=== PATIENT | female | born 1955 | race Caucasian/White ===

== ENCOUNTER 2025-04-30 13:58 | Outpatient (AMB) | payer MEDICARE, SELFPAY ==
--- NOTE | 2025-04-30 13:59 | HO.NEPHOV_ITS ---
Vital Signs 04/30/25 14:01 Height 5 ft 4 in Weight 210 lb BMI 36.0 BP 124/80 Blood Pressure Location Lt brachial Position Sitting Pulse 96 Pulse Source Pulse Oximeter Pulse Oximetry (%) 93 Oxygen Delivery Method Room Air Intake Visit Reasons: ENP: CKD- Confirmed Marketing Administrative Assistant Required: No Accompanied by: Self / Same As Patient Allergies No Known Allergies Allergy (Verified 04/30/25 14:01) Medication List - Last Reconciled 04/30/25 by Vin Jane MD amlodipine 5 mg PO DAILY anastrozole 1 mg PO DAILY atenolol 50 mg PO DAILY calcium carbonate-vitamin D3 500 mg-10 mcg (400 unit) 1 tab PO DAILY clonazepam 1 mg PO DAILY levothyroxine 125 mcg PO DAILY loxapine succinate 5 mg PO DAILY tranylcypromine 30 mg PO DAILY HPI Comments Details: Sharon is a pleasant 70-year-old female referred for CKD - Chronic Kidney Disease: Noted to have creatinine levels at 1.5 and 1.34 mg/dL, eGFR dropped from 50% to 43% over a year. - Hypertension: Long-standing, well-controlled with two medications. - Depression and Anxiety: Managed with medication. h/o Longstanding use of Lithiuim. Stopped a month ago History of prediabetes. - Hypothyroidism Under control with medication. - Polyuria: Frequent urination for two years, nocturia two to four times per night. - Arthritis: Joint pain in both knees, likely arthritis. Does not take any NSAIDS Physical Exam General: Awake. Comfortable. HENT: Neck supple. Mucosa moist. Pulmonary: Lungs aeration equal. No rales. Cardiology: Heart S1-S2 heard. No gallop. Abdomen: Soft. Non tender. Bowel sounds normal. Neurologic: No involuntary movements. No myoclonus. Extremities: No edema. No rash. Joint pains in both knees, likely arthritis. COUNT INCLUDES [facility] Surgical History History of orthopedic surgery H/O colonoscopy H/O breast surgery Review of Systems Const Denies fever(s) and Denies weight loss Card Denies chest pain Resp Denies cough and Denies hemoptysis GI Denies abdominal pain, Denies diarrhea and Denies nausea Musc Denies back pain Neuro Denies focal weakness Physical Exam Vital Signs: Last Vital Signs Pulse 96 04/30/25 14:01 BP 124/80 04/30/25 14:01 Pulse Ox 93 04/30/25 14:01 Oxygen Delivery Method Room Air 04/30/25 14:01 BMI result Body Mass Index 36.0 Comfortable Neck supple no JVD. Lungs entry equal no rales. Heart S1-S2 heard no gallop or rub. Abdomen soft nontender. Neuro alert awake oriented. No asterixis. Extremities no edema. Assessment & Plan Assessment & Plan (1) CKD (chronic kidney disease): Code(s): N18.9 - Chronic kidney disease, unspecified Category: Medical (2) HTN (hypertension): Code(s): I10 - Essential (primary) hypertension Category: Medical Plan 1. Chronic Kidney Disease DDX : Hypertensive nephrosclerosis [place] Nephropathy r/o obstructive uropathy - ordered Renal ultrasound 24-hour urine collection to quantify volume and to r/o Nephrogenic DI due to longstanding use of [place] - Avoid NSAIDs to prevent further damage. 2. Hypertension - Blood pressure well-controlled with current medications. Stay on low salt diet 3. Polyuria Need to r/o Nephrogenic DI - Monitor fluid intake and reduce dietary salt. Orders: Orders US renal BI Today N18.9 - Chronic kidney disease, unspecified Creatinine, 24 Hr Group Today N18.9 - Chronic kidney disease, unspecified Comprehensive Met. Panel Today N18.9 - Chronic kidney disease, unspecified UA and rflx microscopic Today N18.9 - Chronic kidney disease, unspecified Osmolality Urine Today N18.9 - Chronic kidney disease, unspecified Complete Blood Count Auto Diff Today N18.9 - Chronic kidney disease, unspecified Patient Instructions: - Collect urine for 24 hours as instructed and bring to the lab. - Avoid NSAIDs like Aleve, Advil, and Motrin. - Reduce salt intake - Increase fluid intake Coding Level of Care Code New Pt Level 4 (70207) Diagnoses CKD (chronic kidney disease) N18.9 HTN (hypertension) I10
[2025-04-30 14:01] VITALS: BP 124/80; PULSE 96; O2SAT 93; BMI 36.0
== END 2025-04-30 14:17 | disposition home or self-care (01) ==
LOC: HO.HKAE 13:59
PROVIDERS: PCP Internal Medicine; Visit Provider Internal Medicine Hypertension Specialist
DX: I12.9 Hypertensive chronic kidney disease with stage 1 through stage 4 chronic kidney disease, or unspecified chronic kidney disease (principal); N18.9 Chronic kidney disease, unspecified
CPT/HCPCS: 99204

== ENCOUNTER → 2025-04-30 13:58 | Outpatient (BNVA) | payer MEDICARE, SELFPAY | PROVIDERS: PCP Internal Medicine; Visit Provider Internal Medicine Hypertension Specialist | DX: I10 Essential (primary) hypertension (principal); N18.9 Chronic kidney disease, unspecified; F32.A Depression, unspecified; F41.9 Anxiety disorder, unspecified; R35.1 Nocturia; R35.0 Frequency of micturition; M13.80 Other specified arthritis, unspecified site | CPT/HCPCS: 99202 ==

== ENCOUNTER 2025-07-02 15:45 | Outpatient (AMB) | payer MEDICARE, SELFPAY ==
[2025-07-02 15:50] VITALS: BP 140/82; PULSE 91; O2SAT 96; BMI 36.4
--- NOTE | 2025-07-02 15:50 | HO.NEPHOV_ITS ---
Vital Signs 07/02/25 15:50 07/02/25 16:10 Height 5 ft 4 in Weight 212 lb BMI 36.4 BP 140/82 H 120/80 Blood Pressure Location Rt brachial Rt brachial Position Sitting Sitting Pulse 91 Pulse Source Pulse Oximeter Pulse Oximetry (%) 96 Oxygen Delivery Method Room Air Intake Visit Reasons: 5 week f/u-Confirmed Senior Technical Support Analyst Required: No Accompanied by: Self / Same As Patient Allergies No Known Allergies Allergy (Verified 07/02/25 15:52) Medication List - Last Reconciled 07/02/25 by Vin Jane MD amlodipine 5 mg PO DAILY anastrozole 1 mg PO DAILY atenolol 50 mg PO DAILY calcium carbonate-vitamin D3 500 mg-10 mcg (400 unit) 1 tab PO DAILY clonazepam 1 mg PO DAILY levothyroxine 125 mcg PO DAILY lorazepam 0.5 mg PO BEDTIME PRN loxapine succinate 5 mg PO DAILY tranylcypromine 30 mg PO DAILY HPI Comments Details: History of Present Illness The patient is a 70-year-old female with a history of chronic kidney disease and long-standing hypertension presenting for follow-up. Her serum creatinine has improved to 1.17 from a previous level of 1.34. - Depression and Anxiety: Managed with medication. h/o Longstanding use of Lithiuim. Stopped a month ago History of prediabetes. - Hypothyroidism Under control with medication. - Polyuria: Frequent urination for two years, nocturia two to four times per night. - Arthritis: Joint pain in both knees, likely arthritis. Does not take any NSAIDS A prior kidney and bladder ultrasound was normal, with no evidence of stones or blockage. A recent 24-hour urine collection showed a volume of 2,600 cc. She is managed on amlodipine and atenolol for her hypertension. The patient denies the use of Aleve, Advil, or Motrin, but occasionally uses Tylenol. She reported experiencing tiredness and poor sleep prior to the visit. Results - Labs: Serum creatinine is 1.17, improved from 1.34. - Labs: Electrolytes are within normal limits. - Tests and Diagnostics: A 24-hour urine collection showed a total volume of 2,600 cc. - Imaging: A kidney ultrasound was normal with no stones or obstruction. [facility] Surgical History History of orthopedic surgery H/O colonoscopy H/O breast surgery Physical Exam Exam Exam: Physical Exam General: Awake. Comfortable. HENT: Neck supple. Mucosa moist. Pulmonary: Lungs aeration equal. No rales. Cardiology: Heart S1-S2 heard. No gallop. Blood pressure 120/80. Abdomen: Soft. Non tender. Bowel sounds normal. Neurologic: No involuntary movements. No myoclonus. Extremities: No edema. No rash. Vital Signs: Last Vital Signs Pulse 91 07/02/25 15:50 BP 120/80 07/02/25 16:10 Pulse Ox 96 07/02/25 15:50 Oxygen Delivery Method Room Air 07/02/25 15:50 BMI result Body Mass Index 36.4 Comfortable Neck supple no JVD. Lungs entry equal no rales. Heart S1-S2 heard no gallop or rub. Abdomen soft nontender. Neuro alert awake oriented. No asterixis. Extremities no edema. Assessment & Plan Assessment & Plan (1) CKD (chronic kidney disease): Code(s): N18.9 - Chronic kidney disease, unspecified Category: Medical (2) HTN (hypertension): Code(s): I10 - Essential (primary) hypertension Category: Medical Plan Plan 1. Chronic Kidney Disease HTN Nephrosclerosis/ [place] Nepropathy - The patient's kidney function has improved, as evidenced by a decrease in serum creatinine from 1.34 to 1.17. - She was advised to maintain adequate hydration by drinking at least 2,600 cc of fluids, preferably water, daily. - The patient should continue to avoid NSAIDs such as Aleve, Advil, and Motrin. - Repeat blood work will be ordered to monitor kidney function. - A follow-up visit is scheduled in six months. 2. Hypertension - The patient's blood pressure is well-controlled at 120/80 mmHg on her current medication regimen of amlodipine and atenolol. - She was advised to continue avoiding excess salt in her diet. - No changes will be made to her current blood pressure medications. - A note will be sent to her primary care provider to provide an update on her status. Patient Instructions - Your kidney function has improved, which is good news. - Your blood pressure is very good at 120/80. - Make sure to drink plenty of water, at least 2,600 cc (about 11 glasses) each day. - Try to avoid adding extra salt to your food. - Continue to avoid taking Aleve, Advil, or Motrin. You can take Tylenol if you need it for pain. - We will see you back in the office in about six months. - You will need to get blood work done before your next appointment to check on your kidneys. Orders: Orders Basic Metabolic Panel 6 Months I10 - Essential (primary) hypertension, N18.9 - Chronic kidney disease, unspecified Coding Level of Care Code Est Pt Level 4 (99217) Diagnoses CKD (chronic kidney disease) N18.9 HTN (hypertension) I10
[2025-07-02 16:10] VITALS: BP 120/80
--- OUTSIDE RECORDS SUMMARY | 2025-07-03 00:29 | XMS_ITS | Encounter Summary ---
Author Organization [facility] Address [address] [place] [address] Care Team Providers Care Arcade Game Technician Name Role Phone Diana Field MD Primary Care Provider Kenzie Neely MD Unavailable [phone] Sofi Hinson RN Unavailable Unavaila ble Sahil Ignacio MD Unavailable [phone] DosHilaria love MD Unavailable Cheryle Garcia MD Unavailable Rafia Stevenson MD Unavailable [phone] Joselo Arnold MD Unavailable [phone] Karma Kahn RN Unavailable [phone] Jenn David DO Unavailable [phone] DostHilaria MD Unavailable Diana Field MD Unavailable [phone] Bonnie Garrett MD Unavailable Unavailable Sherly Parra MD Unavailable Ilana Jeffery LCSW Unavailable [phone] Hodan Lemon Unavailable Encounter Details Date Type Department Care Team (Late st Contact Info) Description 03/01/2019 Scanned Document [facility] [address] [place] [address] Sheila Mckenzie MD [address] [place] [address] [address] [place] [address] Social History Tobacco Use Types Packs/Day Years Used Date Smoking Tobacco: Never Smokeless Tobacco: Never Alcohol Use Standard Drinks/Week Comments No 0 (1 standard drink = 0.6 oz pur e alcohol) Comments No Sex and Gender Information Value Date Recorded Sex Assigned at Female 12/23/2023 9:41 AM EDT Legal Sex Female 2:23 PM EDT Gender Identity Female 12/23/2023 9:41 AM EDT Sexual Orientation Heterosexual (straight) 12/22 9:41 AM EDT documented as of this encounter Plan of Treatment Upcoming Encounters Date Type Department Care Team (Late Contact Info) Description 08/12/2025 1:45 PM EST Office Visit [facility] Endocrinology [address] [phone] Sherly Parra MD [address] [place] [address] 10/22/2025 10:45 AM EDT Office Visit [address] [phone] Diana Field MD [address] [address] documented as of this encounter Visit Diagnoses Not on filedocumented in this encounter Care Teams Arcade Game Technician Relationship Specialty Start Date End Date Diana Field MD PCP - General Internal Medicine 02/22/16 Jenn David DO [address] [place] [address] PCP - [employer] Medicare Attributed 07/24/21 02/20/22 Hilaria Mathew MD [address] [place] [address] PCP - [employer] Medicare Attributed 02/21/22 03/23/22 Diana Field MD [address] [place] [address] [address] [place] [address] PCP - [employer] Medicare Attributed 03/24/22 Kenzie Neely MD [address] [id number] Physician Obstetrics and Gynecology 01/04/19 Sofi Hinson, RN [address] [address] Oncology Nurse Navigator 04/25/19 04/23/21 Sahil Ignacio MD [address] [id number] Cardiovascular Disease 06/27/19 Hilaria Mathew MD [address] [place] [address] Hematology Oncology 08/20/19 Cheryle Garcia MD [address] [place] [address] Radiation Oncology 08/20/19 Rafia Stevenson MD [address] [facility] [address] [place] [address] Surgery, Breast 05/28/20 Joselo Arnold MD [address] [place] [address] Surgery, Orthopedic 11/19/20 Karma Kahn, RN [address] [place] [address] ICP Community Sales Clerk 07/27/21 02/07/25 Bonnie Garrett MD [address] [place] [address] Psychiatrist Psychiatry, General 11/07/22 Sherly Parra MD [address] [place] [address] Endocrinology 07/25/23 Ilana Jeffery LCSW [address] [address] ICP Community Sales Clerk 02/07/25 02/25/25 Hodan Lemon [address] [address] ICP Community Sales Clerk 02/25/25 documented as of this encounter
--- OUTSIDE RECORDS SUMMARY | 2025-07-03 00:29 | XMS_ITS | Encounter Summary ---
Author Organization [facility] Address [address] [place] [address] Care Team Providers Care Manager Culture Name Role Phone Diana Field MD Primary Care Provider Kenzie Neely MD Unavailable Sofi Hinson RN Unavailable Unavaila ble Sahil Ignacio MD Unavailable [phone] DosHilaria love MD Unavailable Cheryle Garcia MD Unavailable [phone] Rafia Stevenson MD Unavailable [phone] Joselo Arnold MD Unavailable [phone] Karma Kahn RN Unavailable [phone] Jenn David DO Unavailable [phone] DostHilaria MD Unavailable Diana Field MD Unavailable [phone] Bonnie Garrett MD Unavailable Unavailable Sherly Parra MD Unavailable Ilana Jeffery LCSW Unavailable [phone] Hodan Lemon Unavailable Encounter Details Date Type Department Care Team (Late st Contact Info) Description 06/09/2015 Scanned Document [address] [phone] Provider, Generic Social History Tobacco Use Types Packs/Day Years Used Date Smoking Tobacco: Never Alcohol Use Standard Drinks/Week Comments Not Asked 0 (1 standard drink = 0.6 oz pur e alcohol) Comments Unknown Sex and Gender Information Value Date Recorded Sex Assigned at Female 12/23/2023 9:41 AM EDT Legal Sex Female 2:23 PM EDT Gender Identity Female 12/23/2023 9:41 AM EDT Sexual Orientation Heterosexual (straight) 12/22 9:41 AM EDT documented as of this encounter Plan of Treatment Upcoming Encounters Date Type Department Care Team (Late st Contact Info) Description 08/12/2025 1:45 PM EST Office Visit [facility] Endocrinology [address] [phone] Sherly Parra MD [address] [place] [address] 10/22/2025 10:45 AM EDT Office Visit [address] [phone] Diana Field MD [address] [place] [address] documented as of this encounter Procedures Procedure Name Priority Date/Time Associated Diagnosis Comments LAB RESULT 06/09/2015 documented in this encounter Results * LAB RESULT (06/09/2015) Narrative 06/09/2015 Ordered by an unspecified provider. us Generic Provider HX AMB PROCEDURES Edited Result - Final documented in this encounter Visit Diagnoses Not on filedocumented in this encounter Care Teams Manager Culture Relationship Specialty Start Date End Date Diana Field MD PCP - General Internal Medicine 02/22/16 Jenn David DO [address] [place] [address] PCP - [employer] Medicare Attributed 07/24/21 02/20/22 Hilaria Mathew MD [address] [address] PCP - [employer] Medicare Attributed 02/21/22 03/23/22 Diana Field MD [address] [place] [address] PCP - [employer] Medicare Attributed 03/24/22 Kenzie Neely MD [address] [phone] Physician Obstetrics and Gynecology 01/04/19 Sofi Hinson, RN [address] [address] Oncology Nurse Navigator 04/25/19 04/23/21 Sahil Ignacio MD [address] [phone] Cardiovascular Disease 06/27/19 Hilaria Mathew MD 85 [place] [address] Hematology Oncology 08/20/19 hCeryle Garcia MD [address] [place] [address] Radiation Oncology 08/20/19 Rafia Stevenson MD [address] [place] [address] [place] [address] Surgery, Breast 05/28/20 Joselo Arnold MD [address] [place] [address] Surgery, Orthopedic 11/19/20 Karma Kahn, MONA [address] [place] [address] ICP Community Dog Behaviorist 07/27/21 02/07/25 Bonnie Garrett MD [address] [place] [address] Psychiatrist Psychiatry, General 11/07/22 Sherly Parra MD [address] [place] [address] Endocrinology 07/25/23 Ilana eJffery LCSW [address] [address] ICP Community Dog Behaviorist 02/07/25 02/25/25 Hodan Lemon [address] [address] ICP Community Dog Behaviorist 02/25/25 documented as of this encounter
--- OUTSIDE RECORDS SUMMARY | 2025-07-03 00:29 | XMS_ITS | Encounter Summary ---
Author Organization [facility] Address [address] [place] [address] Care Team Providers Care Pattern Vault Clerk Name Role Phone Diana Field MD Primary Care Provider Kenzie Neely MD Unavailable Sofi Hinson RN Unavailable Unavaila ble Sahil Ignacio MD Unavailable [phone] DosHilaria love MD Unavailable Cheryle Garcia MD Unavailable [phone] Rafia Stevenson MD Unavailable [phone] Joselo Arnold MD Unavailable [phone] Karma Kahn RN Unavailable [phone] Jenn David DO Unavailable DostHilaria MD Unavailable Diana Field MD Unavailable [phone] Bonnie Garrett MD Unavailable Unavailable Sherly Parra MD Unavailable Ilana Jeffery LCSW Unavailable [phone] Hodan Lemon Unavailable Encounter Details Date Type Department Care Team (Late st Contact Info) Description 03/09/[address] [facility] [address] [address] Brian Brown, DO [address] [address] Social History Tobacco Use Types Packs/Day Years [...] Orientation Heterosexual (straight) 12/22 9:41 AM EDT 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 No / Unsure 03/09/2021 8:48 AM EDT documented as of this encounter Plan of Treatment Upcoming Encounters Date Type Department Care Team (Late st Contact Info) Description 08/12/2025 1:45 PM EST Office Visit [facility] Endocrinology [address] [phone] Sehrly Parra MD [address] [place] [address] 10/22/2025 10:45 AM EDT Office Visit [address] [phone] Diana Field MD [address] [place] [address] documented as of this encounter Procedures Procedure Name Priority Date/Time Associated Diagnosis Comments PATHOLOGY REPORT 03/09/2021 12:0 0 AM EDT documented in this encounter Results * PATHOLOGY REPORT (03/09/2021 12:00 AM EDT) Brian Brown DO PATHOLOGY/CYTOLOGY ORDERABLES Fi nal Result documented in this encounter Visit Diagnoses Not on filedocumented in this encounter Care Teams Pattern Vault Clerk Relationship Specialty Start Date End Date Diana Field MD PCP - General Internal Medicine 02/22/16 Jenn David DO [address] [place] [address] PCP - [employer] Medicare Attributed 07/24/21 02/20/22 Hilaria Mathew MD [address] [address] PCP - [employer] Medicare Attributed 02/21/22 03/23/22 Diana Field MD [address] [place] [address] PCP - [employer] Medicare Attributed 03/24/22 Kenzie Neely MD [address] [place] [address] Physician Obstetrics and Gynecology 01/04/19 Sofi Hinson RN 499 [place] [address] Oncology Nurse Navigator 04/25/19 04/23/21 Sahil Ignacio MD [address] [place] [address] Cardiovascular Disease 06/27/19 Hilaria Mathew MD 85 [place] [address] Hematology Oncology 08/20/19 Cheryle Garcia MD 85 [place] [address] Radiation Oncology 08/20/19 Rafia Stevenson MD [address] [place] [address] Surgery, Breast 05/28/20 Joselo Arnold MD [address] [place] [address] Surgery, Orthopedic 11/19/20 Karma Kahn, MONA [address] [address] ICP Community Soil Sampler 07/27/21 02/07/25 Bonnie Garrett MD [address] [place] [address] Psychiatrist Psychiatry, General 11/07/22 Sherly Parra MD [address] [place] [address] Endocrinology 07/25/23 Ilana Jeffery LCSW [address] [address] ICP Community Soil Sampler 02/07/25 02/25/25 Hodan Lemon [address] [address] ICP Community Soil Sampler 02/25/25 documented as of this encounter
--- OUTSIDE RECORDS SUMMARY | 2025-07-03 00:29 | XMS_ITS | Clinical Summary ---
Author Organization [facility] Address [address] [place] [address] Care Team Providers Care Burglar Alarm Installer Name Role Phone Diana Field MD Primary Care Provider [phone] Allergies No known active allergies Medications tranylcypromine (PARNATE) 10 mg tablet 8 Active levothyroxine (SYNTHROID) 137 mcg tablet TAKE ONE TABLET BY MOUTH EVERY DAY 8 Active QUEtiapine (SEROquel) 25 mg tablet 8 Active mometasone (ELOCON) 0.1 % lotion 8 Active metroNIDAZOLE (METROCREAM) 0.75 % cream APPLY TWICE DAILY TO FACE 7 Active lithium (LITHOBID) 300 mg CR tablet 8 Active liothyronine (CYTOMEL) 5 mcg tablet 8 Active clotrimazole-be tamethasone (LOTRISONE) cream Apply topically. 8 Active clonazePAM (KlonoPIN) 0.5 mg tablet 2 times daily (every 12 hours) as needed. ClonazePAM 0.5 MG Oral Tablet 3 Active atenolol (TENORMIN) 50 mg tablet Take 50 mg by mouth. 0 8 Active ARIPiprazole (ABILIFY) 5 mg tablet Patient takes half tablet QOD 8 Active clonazePAM (KlonoPIN) 0.5 mg tablet 8 Active ARIPiprazole (ABILIFY) 5 mg tablet Patient takes half tablet QOD 8 Active ketoconazole (NIZORAL) 2 % creamIndication s:Candidal intertrigo Apply twice a day to rash in skin folds. 30 g 3 8 Active hydrocortisone 2.5 % ointmentIndicat ions:Psoriasis Apply twice a day to groin skin folds for 4-5 days then take a few days off before repeating. 30 g 3 8 Active fluocinolone (DERMA-SMOOTHE) 0.01 % external oilIndications: Irritant dermatitis Apply to scalp and groin folds twice a day for flares for up to two weeks. 120 mL 5 8 Active Active Problems Problem Noted Date Diagnosed Date Psoriasis 03/21/2018 Alopecia areata 03/21/2018 Essential hypertension 12/20/2016 Morbid obesity 11/15/2013 Hirsutism 09/20/2013 Hypothyroidism 09/20/2013 Rosacea 09/20/2013 Bipolar disorder with depression 09/17/2013 Chronic kidney disease, stage III (moderate) Edema 09/17/2013 Hypertensive kidney disease with stage 3 chronic kidney disease 09/17/2013 Pain in joint, lower leg 09/17/2013 Immunizations Immunization Administration Dates Next Due Influenza TIV (IM) 06/16/2015,05/04/2009 Family History Medical History Relation Comments Osteoporosis Mother Cancer Sister Relation Status Comments Mother Sister Social History Tobacco Use Types Packs/Day Years Used Date Smoking Tobacco: Never Smokeless Tobacco: Never Alcohol Use Standard Drinks/Week Comments No 0 (1 standard drink = 0.6 oz pur e alcohol) Comments Unknown Sex and Gender Information Value Date Recorded Sex Assigned at Not on file Legal Sex Female 3:15 PM EDT Gender Identity Not on file Sexual Orientation Not on file Plan of Treatment Health Maintenance Due Date Last Done Comments Bone Density Screening 1956 CT Colonography 1956 Colonoscopy 1956 Colorectal Cancer Screening 1956 FIT-DNA (Cologuard) 1955 FIT 1956 FOBT 1955 Flex Sigmoidoscopy - 5y 1956 HIV Screening 1955 DTaP,Tdap,and Td Vaccines (1 - Tdap) 02/05/1974 Pneumococcal Vaccine, 50+ Years (1 of 1 - PCV) 02/05/2006 Zoster Vaccines (1 of 2) 02/05/2006 Breast Cancer Screening 02/20/2020 02/19/2018 COVID-19 Vaccine (3 - 2024- season) 2025 11/06/2020, 10/16/2020 Influenza Vaccine (#1) 2025 , 06/07/2019, 06/16/2015, Additional history exists Pap Smear Discontinued 03/12/2021 HPV Vaccines Aged Out No longer eligi ble based on patient's age to complete this topic Hepatitis A Vaccines Aged Out No long er eligible based on patient's age to complete this topic Meningococcal Vaccine Aged Out No james dick eligible based on patient's age to complete this topic Insurance [employer] MANAGED MEDICARE PPO Care Teams Burglar Alarm Installer Relationship Specialty Start Date End Date Diana Field MD [address] [place] [address] PCP - General 10/04/17
--- OUTSIDE RECORDS SUMMARY | 2025-07-03 00:29 | XMS_ITS | Encounter Summary ---
Author Organization [facility] Address [address] [place] [address] Care Team Providers Care Grocery Caddy Name Role Phone Diana Field MD Primary Care Provider Kenzie Neely MD Unavailable Sahil Ignacio MD Unavailable [phone] DosHilaria love MD Unavailable Cheryle Garcia MD Unavailable Rafia Stevenson MD Unavailable [phone] Joselo Arnold MD Unavailable [phone] Karma Kahn RN Unavailable [phone] Jenn David DO Unavailable [phone] DosHilaria love MD Unavailable Diana Field MD Unavailable [phone] Bonnie Garrett MD Unavailable Unavailable Sherly Parra MD Unavailable Ilana Jeffery LCSW Unavailable [phone] Hodan Lemon Unavailable Encounter Details Date Type Department Care Team (Late st Contact Info) Description 11/05/2021 Scanned Document [facility] PRIMARY CARE SCAN Diana Field MD [address] [place] [address] Social History Tobacco Use Types Packs/Day Years [...] have Coronavirus / COVID-19? No / Unsure 10/26/2021 10:39 AM EDT documented as of this encounter Plan of Treatment Upcoming Encounters Date Type Department Care Team (Late st Contact Info) Description 08/12/2025 1:45 PM EST Office Visit [facility] Endocrinology [address] [phone] Sherly Parra MD [address] [address] 10/22/2025 10:45 AM EDT Office Visit [facility] [address] [phone] Diana Field MD [address] [facility] 101 [place] [address] documented as of this encounter Visit Diagnoses Not on filedocumented in this encounter Care Teams Grocery Caddy Relationship Specialty Start Date End Date Diana Field MD PCP - General Internal Medicine 02/22/16 Jenn David DO 74 [place] [address] PCP - Aetna Medicare Attributed 07/24/21 02/20/22 Hilaria Mathew MD [address] [address] PCP - Aetna Medicare Attributed 02/21/22 03/23/22 Diana Field MD [address] [place] [address] [address] [place] [address] PCP - Aetna Medicare Attributed 03/24/22 Kenzie Neely MD 499 [facility] 220 [place] [address] Physician Obstetrics and Gynecology 01/04/19 Sahil Ignacio MD 499 [facility] [address] [place] [address] Cardiovascular Disease 06/27/19 Hilaria Mathew MD [address] [phone] Hematology Oncology 08/20/19 Cheryle Garcia MD 85 [place] [address] Radiation Oncology 08/20/19 Rafia Stevenson MD 399 [facility] [address] [place] [address] Surgery, Breast 05/28/20 Joselo Arnold MD [address] [place] [address] Surgery, Orthopedic 11/19/20 Karma Kahn, RN [address] [facility] 4 [place] [address] ICP Community Rawhide Bone Roller 07/27/21 02/07/25 Bonnie Garrett MD [address] [place] [address] Psychiatrist Psychiatry, General 11/07/22 Sherly Parra MD [address] [place] [address] Endocrinology 07/25/23 Ilana Jeffery LCSW [address] [address] ICP Community Rawhide Bone Roller 02/07/25 02/25/25 Hodan Lemon [address] [address] ICP Community Rawhide Bone Roller 02/25/25 documented as of this encounter
--- OUTSIDE RECORDS SUMMARY | 2025-07-03 00:29 | XMS_ITS | Encounter Summary ---
Author Organization [facility] Address [address] [place] [address] Care Team Providers Care Oil Well Service Unit Operator Name Role Phone Diana Field MD Primary Care Provider Kenzie Neely MD Unavailable [phone] Sofi Hinson RN Unavailable Unavaila ble Sahil Ignacio MD Unavailable [phone] DosHilaria love MD Unavailable Cheryle Garcia MD Unavailable [phone] Rafia Stevenson MD Unavailable [phone] Joselo Arnold MD Unavailable [phone] Karma Kahn RN Unavailable [phone] Jenn David DO Unavailable [phone] DostHilaria MD Unavailable Diana Field MD Unavailable [phone] Bonnie Garrett MD Unavailable Unavailable Sherly Parra MD Unavailable Ilana Jeffery LCSW Unavailable [phone] Hodan Lemon Unavailable Encounter Details Date Type Department Care Team (Late st Contact Info) Description 09/04/[address] [facility] Endocrinology [address] [address] Obstetrics And Gynecology, Scan Social History Tobacco Use Types Packs/Day Years [...] Description 08/12/2025 1:45 PM EST Office Visit [facility] Endocrinology [address] [phone] Sherly Parra MD [address] [place] [address] 10/22/2025 10:45 AM EDT Office Visit [address] [phone] Diana Field MD [address] [place] [address] documented as of this encounter Visit Diagnoses Not on filedocumented in this encounter Care Teams Oil Well Service Unit Operator Relationship Specialty Start Date End Date Diana Field MD PCP - General Internal Medicine 02/22/16 Jenn David DO [address] [place] [address] PCP - Aetna Medicare Attributed 07/24/21 02/20/22 Hilaria Mathew MD [address] [place] [address] PCP - Aetna Medicare Attributed 02/21/22 03/23/22 Diana Field MD [address] [place] [address] [address] [place] [address] PCP - Aetna Medicare Attributed 03/24/22 Kenzie Neely MD 499 [facility] 220 [place] [address] Physician Obstetrics and Gynecology 01/04/19 Sofi Hinson RN 499 [facility] 220 [place] [address] Oncology Nurse Navigator 04/25/19 04/23/21 Sahil Ignacio MD 499 [facility] 220 [place] [address] Cardiovascular Disease 06/27/19 Hilaria Mathew MD 85 [place] [address] Hematology Oncology 08/20/19 Cheryle Garcia MD 85 [place] [address] Radiation Oncology 08/20/19 Rafia Stevenson MD 399 [facility] [address] [place] [address] Surgery, Breast 05/28/20 Joselo Arnold MD [address] [place] [address] Surgery, Orthopedic 11/19/20 Karma Kahn, RN [address] [place] [address] ICP Community Rn Float 07/27/21 02/07/25 Bonnie Garrett MD [address] [place] [address] Psychiatrist Psychiatry, General 11/07/22 Sherly Parra MD [address] [place] [address] Endocrinology 07/25/23 Ilana Jeffery LCSW [address] [address] ICP Community Rn Float 02/07/25 02/25/25 Hodan Lemon [address] [address] ICP Community Rn Float 02/25/25 documented as of this encounter
--- OUTSIDE RECORDS SUMMARY | 2025-07-03 00:29 | XMS_ITS | Encounter Summary ---
Author Organization [facility] Address [address] [place] [address] Care Team Providers Care Diver Pumper Name Role Phone Diana Field MD Primary Care Provider Kenzie Neely MD Unavailable [phone] Sofi Hinson RN Unavailable Unavaila ble Sahil Ignacio MD Unavailable [phone] DosHilaria love MD Unavailable Cheryle Garcia MD Unavailable [phone] Rafia Stevenson MD Unavailable [phone] Joselo Arnold MD Unavailable [phone] Karma Kahn RN Unavailable [phone] Jenn David DO Unavailable [phone] DostHilaria MD Unavailable Diana Field MD Unavailable [phone] Bonnie Garrett MD Unavailable Unavailable Sherly Parra MD Unavailable Ilana Jeffery LCSW Unavailable [phone] Hodan Leomn Unavailable Encounter Details Date Type Department Care Team (Late st Contact Info) Description 07/26/[address] [facility] Breast Care & Surgery [place] 399 [facility] [address] [place] [address] Rafia Stevenson MD 399 [facility] [address] [place] [address] Social History Tobacco Use Types Packs/Day Years [...] 1:45 PM EST Office Visit [facility] Endocrinology [place] [address] [phone] Sherly Parra MD 100 [place] [address] 10/22/2025 10:45 AM EDT Office Visit [address] [phone] Diana Field MD 100 [facility] 101 [place] [address] documented as of this encounter Visit Diagnoses Not on filedocumented in this encounter Care Teams Diver Pumper Relationship Specialty Start Date End Date Diana Field MD PCP - General Internal Medicine 02/22/16 Jenn Dvaid DO [address] [place] [address] PCP - Aetna Medicare Attributed 07/24/21 02/20/22 Hilaria Mathew MD 2800 [facility] 3rd [place] [address] PCP - Aetna Medicare Attributed 02/21/22 03/23/22 Diana Field MD [address] [place] [address] PCP - Aetna Medicare Attributed 03/24/22 Kenzie Neely MD 499 [facility] 220 [place] [address] Physician Obstetrics and Gynecology 01/04/19 Sofi Hinson, RN [address] [address] Oncology Nurse Navigator 04/25/19 04/23/21 Sahil Ignacio MD 499 [place] [address] Cardiovascular Disease 06/27/19 Hilaria Mathew MD [address] [place] [address] Hematology Oncology 08/20/19 Cheryle Garcia MD 85 [place] [address] Radiation Oncology 08/20/19 Rafia Stevenson MD 399 [facility] [address] [place] [phone] Surgery, Breast 11/5/20 Joselo Arnold MD [address] [place] [address] Surgery, Orthopedic 11/19/20 Karma Kahn, RN [address] [place] [address] [facility] 4 [place] [address] ICP Community Veneer Sheet Repairer 07/27/21 02/07/25 Bonnie Garrett MD [address] [place] [address] Psychiatrist Psychiatry, General 11/07/22 Sherly Parra MD [address] [place] [address] Endocrinology 07/25/23 Ilana Jeffery LCSW [address] [address] ICP Community Veneer Sheet Repairer 02/07/25 02/25/25 Hodan Lemon [address] [address] ICP Community Veneer Sheet Repairer 02/25/25 documented as of this encounter
--- OUTSIDE RECORDS SUMMARY | 2025-07-03 00:29 | XMS_ITS | Encounter Summary ---
Author Organization [facility] Address [address] [place] [address] Care Team Providers Care Product Marketing Director Name Role Phone Diana Field MD Primary Care Provider Kenzie Neely MD Unavailable [phone] Sofi Hinson RN Unavailable Unavaila ble Sahil Ignacio MD Unavailable [phone] DosHilaria love MD Unavailable Cheryle Garcia MD Unavailable [phone] Rafia Stevenson MD Unavailable [phone] Joselo Arnold MD Unavailable [phone] Karma Kahn RN Unavailable [phone] Jenn David DO Unavailable [phone] DostHilaria MD Unavailable Diana Field MD Unavailable [phone] Bonnie Garrett MD Unavailable Unavailable Sherly Parra MD Unavailable Ilana Jeffery LCSW Unavailable [phone] Hodan Lemon Unavailable Encounter Details Date Type Department Care Team (Late st Contact Info) Description 06/11/2018 Scanned Document [address] [phone] Provider, Generic Social History Tobacco Use Types [...] Description 08/12/2025 1:45 PM EST Office Visit [facility] Endocrinology [address] [phone] Sherly Parra MD [address] [place] [address] 10/22/2025 10:45 AM EDT Office Visit [address] [phone] Diana Field MD [address] [place] [address] documented as of this encounter Visit Diagnoses Not on filedocumented in this encounter Care Teams Product Marketing Director Relationship Specialty Start Date End Date Diana Field MD PCP - General Internal Medicine 02/22/16 Jenn David DO [address] [place] [address] PCP - Aetna Medicare Attributed 07/24/21 02/20/22 Hilaria Mathew MD [address] [place] [address] PCP - Aetna Medicare Attributed 02/21/22 03/23/22 Diana Field MD [address] [place] [address] [address] [place] [address] PCP - Aetna Medicare Attributed 03/24/22 Kenzie Neely MD 499 [facility] 220 [place] [address] Physician Obstetrics and Gynecology 01/04/19 Sofi Hinson RN 499 [facility] 220 [place] [address] Oncology Nurse Navigator 04/25/19 04/23/21 Sahil Ignacio MD 499 [facility] 220 [place] [address] Cardiovascular Disease 06/27/19 Hilaria Mathew MD 85 [place] [address] Hematology Oncology 08/20/19 Cheryel Garcia MD 85 [place] [address] Radiation Oncology 08/20/19 Rafia Stevenson MD [address] [facility] [address] [place] [address] Surgery, Breast 05/28/20 Joselo Arnold MD [address] [place] [address] Surgery, Orthopedic 11/19/20 Karma Kahn, RN [address] 4 [place] [address] ICP Community Import/Export Agent 07/27/21 02/07/25 Bonnie Garrett MD [address] [place] [address] Psychiatrist Psychiatry, General 11/07/22 Sherly Parra MD [address] [place] [address] Endocrinology 07/25/23 Ilana Jeffery LCSW [address] [address] ICP Community Import/Export Agent 02/07/25 02/25/25 Hodan Lemon [address] [address] ICP Community Import/Export Agent 02/25/25 documented as of this encounter
--- OUTSIDE RECORDS SUMMARY | 2025-07-03 00:29 | XMS_ITS | Encounter Summary ---
Author Organization [facility] Address [address] [place] [address] Care Team Providers Care Machine Hoop Maker Helper Name Role Phone Diana Field MD Primary Care Provider + [phone] Kenzie Neely MD Unavailable [phone] Sahil Ignacio MD Unavailable [phone] Hilaria Mathew MD Unavailable Cheryle Garcia MD Unavailable [phone] Rafia Stevenson MD Unavailable [phone] Joselo Arnold MD Unavailable [phone] Karma Kahn RN Unavailable [phone] Diana Field MD Unavailable [phone] Bonnie Garrett MD Unavailable Unavailable Sherly Parra MD Unavailable Ilana Jeffery LCSW Unavailable [phone] Hodan Lemon Unavailable Encounter Details Date Type Department Care Team (Late st Contact Info) Description 02/05/2025 Scanned Document [facility] ONCOLOGY SCAN Oncology, Scan Social History Tobacco Use Types Packs/Day Years Used Date Smoking Tobacco: Never Smokeless Tobacco: Never Alcohol Use Standard Drinks/Week Comments No 0 (1 standard drink = 0.6 oz pur e alcohol) [facility] Utilities Answer Date Recorded In the past 12 months has th e electric, gas, oil, or water company threatened to shut off services in your home? No 10/21/2024 Social Connection and Isolation Panel Answer Date Recorded In a typical week, how many times do you talk on the phone with family, friends, or neighbors? Once a week 10/21/2024 Frequency of Social Gatherings with Friends and Family Not on file 10/21/2024 Attends Mandaeism Services Not on file 10/21 Active Member of Clubs or Organizations Not on f ile 10/21/2024 Attends Club or Organization Meetings Not on samson e 10/21/2024 Marital Status Not on file 10/21/2024 AUDIT-C Answer Date Recorded Q1: How often do you have a drink containing alcohol? Never 10/21/2024 Q2: How many drinks containi ng alcohol do you have on a typical day when you are drinking? Patient does not drink Q3: How often do you have si x or more drinks on one occasion? Never 10/21/2024 PHQ-2 Answer Date Recorded PHQ-2 Total Score 6 06/13/2024 Hunger Vital Sign Answer Date Recorded Within the past 12 months, y ou worried that your food would run out before you got the money to buy more. Never true 10/22/19 25 Within the past 12 months, t he food you bought just didn't last and you didn't have money to get more. Never true 10/21/2024 PRAPARE - Transportation Answer Date Re corded In the past 12 months, has l ack of transportation kept you from medical appointments or from getting medications? No 09/23 In the past 12 months, has l ack of transportation kept you from meetings, work, or from getting things needed for daily living? No 10/21/2024 Housing Stability Vital Sign Answer Dusty e Recorded In the last 12 months, was t here a time when you were not able to pay the mortgage or rent on time? No 10/21/2024 In the past 12 months, how m any times have you moved where you were living? 0 10/21/2024 At any time in the past 12 m [facility], were you homeless or living in a assisted (including now)? No 10/21/2024 Physical Activity Answer Date Recorded On average, how many days pe r week do you engage in moderate to strenuous exercise (like a brisk walk)? 0 days 10/21/2024 On average, how many minutes do you exercise per day at this level? 0 min 10/21/2024 Education Answer Date Recorded What is the highest level of school you have completed or the highest degree you have received? 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 Not on file Not on file documented as of this encounter Plan of Treatment Upcoming Encounters Date Type Department Care Team (Late st Contact Info) Description 08/12/2025 1:45 PM EST Office Visit [facility] Endocrinology [address] [phone] Sherly Parra MD [address] [place] [address] 10/22/2025 10:45 AM EDT Office Visit [address] [phone] Diana Field MD [address] [place] [address] documented as of this encounter Visit Diagnoses Not on filedocumented in this encounter Care Teams Machine Hoop Maker Helper Relationship Specialty Start Date End Date Diana Field MD PCP - General Internal Medicine 02/22/16 Diana Field MD [address] [place] [address] PCP - Aetna Medicare Attributed 03/24/22 Kenzie eNely MD 499 [facility] 220 [place] [address] Physician Obstetrics and Gynecology 01/04/19 Sahil Ignacio MD 499 [facility] 220 [place] [address] Cardiovascular Disease 06/27/19 Hilaria Mathew MD [address] [phone] Hematology Oncology 08/20/19 Cheryle Garcia MD [address] [place] [phone] Radiation Oncology 08/20/19 Rafia Stevenson MD 399 [facility] [address] [place] [phone] Surgery, Breast 05/28/20 Joselo Arnold MD [address] [facility] 208 [place] [address] Surgery, Orthopedic 11/19/20 Karma Kahn, RN 1290 [facility] 4 [place] [address] [facility] Community Machinery Rigger 07/27/21 02/07/25 Bonnie Garrett MD 100 [facility] [address] [place] [address] Psychiatrist Psychiatry, General 11/07/22 Sherly Parra MD [address] [place] [address] Endocrinology 07/25/23 Ilana Jeffery LCSW [address] [address] [facility] Community Machinery Rigger 02/07/25 02/25/25 Hodan Lemon [address] [address] [facility] Community Machinery Rigger 02/25/25 documented as of this encounter
--- OUTSIDE RECORDS SUMMARY | 2025-07-03 00:29 | XMS_ITS | Encounter Summary ---
Author Organization [facility] Address [address] [place] [address] Care Team Providers Care Creasing Machine Operator Name Role Phone Diana Field MD Primary Care Provider + [phone] Kenzie Neely MD Unavailable [phone] Sahil Ignacio MD Unavailable [phone] Hilaria Mathew MD Unavailable Cheryle Garcia MD Unavailable [phone] Rafia Stevenson MD Unavailable [phone] Joselo Arnold MD Unavailable [phone] Karma Kahn RN Unavailable [phone] Diana Field MD Unavailable [phone] Bonnie Garrett MD Unavailable Unavailable Sherly Parra MD Unavailable Ilana Jeffery LCSW Unavailable +[phone] Hodan Lemon Unavailable Encounter Details Date Type Department Care Team (Late st Contact Info) Description 07/27/2023 Scanned Document [facility] PODIATRY SCAN Podiatry, Scan Social History Tobacco Use Types Packs/Day [...] Description 08/12/2025 1:45 PM EST Office Visit [facility] Endocrinology [address] [phone] Sherly Parra MD 100 [place] [address] 10/22/2025 10:45 AM EDT Office Visit [address] [phone] Diana Field MD 100 [place] [address] documented as of this encounter Visit Diagnoses Not on filedocumented in this encounter Care Teams Creasing Machine Operator Relationship Specialty Start Date End Date Diana Field MD PCP - General Internal Medicine 02/22/16 Diana Field MD [address] [address] PCP - Aetna Medicare Attributed 03/24/22 Kenzie Neely MD [address] [address] Physician Obstetrics and Gynecology 01/04/19 Sahil Ignacio MD [address] [place] [phone] Cardiovascular Disease 06/27/19 Hilaria Mathew MD [address] [place] [phone] Hematology Oncology 08/20/19 Cheryle Garcia MD [address] [place] [address] Radiation Oncology 08/20/19 Rafia Stevenson MD 399 [facility] [address] [place] [address] Surgery, Breast 05/28/20 Joselo Arnold MD [address] [place] [address] Surgery, Orthopedic 11/19/20 Karma Kahn, MONA [address] [facility] [facility] 4 [place] [address] [facility] Community Wire Dropper 07/27/21 02/07/25 Bonnie Garrett MD [address] [place] [address] Psychiatrist Psychiatry, General 11/07/22 Sherly Parra MD [address] [place] [address] Endocrinology 07/25/23 Ilana Jeffery LCSW [address] [facility] [address] [place] [address] [facility] Community Wire Dropper 02/07/25 02/25/25 Hodan Lemon [address] [address] [facility] Community Wire Dropper 02/25/25 documented as of this encounter
--- OUTSIDE RECORDS SUMMARY | 2025-07-03 00:29 | XMS_ITS | Encounter Summary ---
Author Organization [facility]ly [facility] Address [address] [place] [address] Care Team Providers Care Warehouse General Laborer Name Role Phone Diana Field MD Primary Care Provider Kenzie Neely MD Unavailable [phone] Sofi Hinson RN Unavailable Unavaila ble Sahil Ignacio MD Unavailable [phone] DosHilaria love MD Unavailable Cheryle Garcia MD Unavailable Rafia Stevenson MD Unavailable [phone] Joselo Arnold MD Unavailable [phone] Karma Kahn RN Unavailable [phone] Jenn David DO Unavailable [phone] DostHilarai MD Unavailable Diana Field MD Unavailable [phone] Bonnie Garrett MD Unavailable Unavailable Sherly Parra MD Unavailable Ilana Jeffery LCSW Unavailable [phone] Hodan Lemon Unavailable Encounter Details Date Type Department Care Team (Late st Contact Info) Description 05/28/2020 Prep for Surgery [facility] Breast Care & Surgery [place] [address] [facility] [address] [place] [address] Rosa Elena Gomez, RN [address] [facility] [address] [place] [address] Ductal carcinoma in situ (DCIS) of left breast (Primary Dx) Social History Tobacco Use Types Packs/Day Years [...] have Coronavirus / COVID-19? No / Unsure 05/29/2020 2:45 PM EST documented as of this encounter Plan of Treatment Upcoming Encounters Date Type Department Care Team (Late st Contact Info) Description 08/12/2025 1:45 PM EST Office Visit [facility] Endocrinology [address] [phone] Sherly Parra MD [address] [place] [address] [address] [place] [address] 10/22/2025 10:45 AM EDT Office Visit [address] [phone] Diana Field MD [address] [address] documented as of this encounter Results * COVID-19 (SARS-COV-2) Lab Request (06/06/2020 10:39 AM EST) COVID-19 (SARS-CoV-2) Specimen received and test ordered for designated performing laboratory. HOSPITAL [facility] Microbiology Nasopharyngeal swab / Unknown 06/06/2020 10:39 AM EST 06/06/2020 12:42 PM EST Rafia Stevenson MD MICROBIOLOGY - GENERAL ORDERAB LES Final Result [facility] documented in this encounter Visit Diagnoses Diagnosis Ductal carcinoma in situ (DCIS) of left breast- Primary documented in this encounter Care Teams Warehouse General Laborer Relationship Specialty Start Date End Date Diana Field MD PCP - General Internal Medicine 02/22/16 Jenn David DO [address] [place] [id number] PCP - [employer] Attributed 07/24/21 02/20/22 Hilaria Mathew MD [address] [address] PCP - [employer] Attributed 02/21/22 03/23/22 Diana Field MD [address] [place] [address] PCP - [employer] Attributed 03/24/22 Kenzie Neely MD [address] [facility] [address] [place] [address] Physician Obstetrics and Gynecology 01/04/19 Sofi Hinson, RN [address] [facility] [address] [place] [address] Oncology Nurse Navigator 04/25/19 04/23/21 Sahil Ignacio MD [address] [place] [id number] Cardiovascular Disease 06/27/19 Hilaria Mathew MD [address] [place] [address] Hematology Oncology 08/20/19 Cheryle Garcia MD [address] [place] [address] Radiation Oncology 08/20/19 Rafia Stevenson MD [address] [facility] [address] [place] [address] Surgery, Breast 05/28/20 Joselo Arnold MD [address] [place] [address] Surgery, Orthopedic 11/19/20 Karma Kahn, RN [address] [place] [address] ICP Community Production Dispatcher 07/27/21 02/07/25 Bonnie Garrett MD [address] [place] [address] Psychiatrist Psychiatry, General 11/07/22 Sherly Parra MD [address] [place] [address] Endocrinology 07/25/23 Ilana Jeffery LCSW [address] [facility] [address] [place] [address] ICP Community Production Dispatcher 02/07/25 02/25/25 Hodan Lemon [address] [address] [facility] Community Production Dispatcher 02/25/25 documented as of this encounter
--- OUTSIDE RECORDS SUMMARY | 2025-07-03 00:29 | XMS_ITS | Clinical Summary ---
Author Organization [facility] Address [address] [place] [address] Care Team Providers Care Electrical Electronics Engineer Name Role Phone Diana Field MD Primary Care Provider Kenzie Neely MD Unavailable [phone] Sahil Ignacio MD Unavailable [phone] DosGaby love MD Unavailable Cheryle Garcia MD Unavailable [phone] Tana Stevenson MD Unavailable [phone] Joselo Arnold MD Unavailable [phone] Diana Field MD Unavailable [phone] Bonnie Garrett MD Unavailable Unavailable Sherly Parra MD Unavailable Hodan Lemon Unavailable Allergies No known active allergies Medications * This document contains information received from the source organization and may not represent a complete record from that organization. clonazePAM (KlonoPIN) 0.5 MG tablet Take by mouth every morning. ClonazePAM 1.5 MG Oral Tablet daily 12/26/19 13 Active loxapine (LOXITANE) 10 MG capsule Take 5 mg by mouth nightly. Active tranylcypromine (PARNATE) 10 MG tabletIndication s:Breast cancer (HCC) Take 1 tablet (10 mg total) by mouth 3 (three) times a day. 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 TAKE ONE TABLET BY MOUTH EVERY DAY ON AN EMPTY STOMACH 90 tablet 2 12/14/19 25 Active atenolol (TENORMIN) 50 MG tabletIndication s:HTN (hypertension), benign TAKE ONE TABLET BY MOUTH EVERY DAY 90 tablet 3 12/27/19 25 Active Additional Information Patient taking differently:50 mg OralEvery morning, Reason: Other, Reported on 05/05/2025 anastrozole (ARIMIDEX) 1 MG tabletIndication s:Breast cancer (HCC) TAKE ONE TABLET BY MOUTH EVERY DAY 90 tablet 1 03/06/20 Active Additional Information Patient taking differently:1 mg OralEvery morning, Reason: Other, Reported on 05/05/2025 amLODIPine (NORVASC) 5 MG tabletIndication s:Essential hypertension TAKE ONE TABLET BY MOUTH EVERY DAY 90 tablet 3 03/06/20 Active Additional Information Patient taking differently:5 mg OralEvery morning, Reason: Other, Reported on 05/05/2025 melatonin 3 MG Tab tablet Take 1 tablet (3 mg total) by mouth nightly. Active LORazepam (Ativan) 0.5 MG tablet Take 0.5 mg by mouth 3 times daily (every 8 hours) as needed. Active sodium-potassium -magnesium sulfates (SUPREP BOWEL PREP) 17.5-3.13-1.6 GM/177ML Solution solutionIndicati ons:History of colon polyps Take as directed for Colonoscopy/GI Procedure. See administration instructions. 354 mL 05/19/20 Active Active Problems Problem Noted Date Diagnosed Date History of bilateral breast cancer 05/02/2025 Assessment & Plan (05/02/2025 11:48 AM EDT): Diagnosed with right breast cancer (2018); status post lumpectomy and radiation therapy. History of left breast cancer (2019); status post lumpectomy and radiation therapy. Continue on anastrozole as prescribed. Followed by hematology-oncology (Dr Gaby Solomon) and breast surgery (Dr Tana Stevenson). Follow up with provider as directed Anxiety 05/02/2025 Assessment & Plan (05/02/2025 11:48 AM EDT): See above Prediabetes 05/02/2025 Assessment & Plan (05/02/2025 11:51 AM EDT): See above Class 2 severe obesity due t o excess calories with serious comorbidity and body mass index (BMI) of 37.0 to 37.9 in adult 07/12/2023 Assessment & Plan (05/02/2025 11:43 AM EDT): A1C 5.8 on 12/09/24. Body mass index is 37.91 kg/m . Recommend diet, exercise and lifestyle modifications. Follow up with provider as directed Trouble walking 02/21/2023 Overview (04/23/2025): Trouble getting up from chair/toilet. Can't walk very far. Trouble with stairs and curbs. Arthralgia 03/01/2021 Chronic fatigue syndrome 06/16/2018 Intertrigo 06/16/2018 Arthritis 07/24/2017 Overview (04/23/2025): Both knees Essential hypertension 12/20/2016 Assessment & Plan (05/02/2025 11:41 AM EDT): BP 122/78. Well-controlled by lifestyle and medication. Continue current medication regimen as prescribed. Follow up with provider as directed Hypothyroidism 09/20/2013 Assessment & Plan (05/02/2025 11:40 AM EDT): Compliant with thyroid medication. Continue current medication regimen as prescribed. Patient to follow up with PCP or family services manager for continued management of hypothyroidism as previously directed. Rosacea 09/20/2013 Chronic kidney disease, stage III (moderate) Assessment & Plan (05/02/2025 11:43 AM EDT): GFR=43, Cr=1.34, BUN=15 on 12/09/24. Trended values which have remained relatively stable since 11/2021. Avoid nephrotoxic drugs perioperatively. Recommend renal dosing of medications when appropriate to preserve renal function. Continue with plan of care and follow up as previously directed for further management and treatment. Followed by nephrology (Dr Vin Jane). Follow up with provider as directed Bipolar disorder with depression 09/17/2013 Assessment & Plan (05/02/2025 11:48 AM EDT): Maintained on tranycypromine, loxapine, and clonazepam daily. Participates in counseling therapy. Patient denies suicidal or homicidal ideation. Mood and affect appropriate in office today. Continue current medication regimen as prescribed. Patient to follow up with provider as previously directed. 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 05/25/2020 04/23/2025 Overview (05/25/2020): Added automatically from request for surgery [id number] Rash 12/13/2019 10/05/2023 Depression 08/23/2019 03/07/2023 Overview (03/07/2023): bipolar with depression present on problem list Malignant neoplasm of upper- outer quadrant of right breast in female, estrogen receptor positive 05/17/2019 04/23/2025 Overview (05/17/2019): Added automatically from request for surgery [id number] Malignant tumor of breast 04/09/2019 Lichenification and lichen simplex chronicus 8 04/23/2025 Alopecia areata 06/23/2017 04/23/2025 Morbid obesity 11/15/2013 03/07/2023 Overview (03/07/2023): BMI <35 Hirsutism 09/20/2013 04/23/2025 Encounters Date Type Department Care Team Description 05/26/2025 11:55 AM EST - 05/26/2025 12:20 PM EST Surgery [facility] [address] [place] [address] Hiram Laguerre MD CAT W/IOL LENSX VERION ORA DIABETIC (collect $1015) 05/26/2025 9:11 AM EST - 05/26/2025 11:59 PM EST Hospital Encounter [facility] [address] [address] Hiram Laguerre MD Discharge Disposition: Home or Self Care 05/16/2025 Scanned Document [facility] Home Health Services, Scan 05/09/2025 Scanned Document [facility] [address] [facility] [address] [place] [id number] Provider, Generic 05/05/2025 9:45 AM EDT Telemedicine [facility] [phone] [phone] Sangiovanni, Avis, DO Urinary tract infection symptoms (Primary Dx); NERIS (acute kidney injury) 05/02/2025 4:43 PM EDT - 05/02/2025 11:59 PM EDT Hospital Encounter [facility] [address] [place] [address] Rosalba Geller, INDUSTRIAL MAINTENANCE REPAIRER Discharge Disposition: Home or Self Care 05/02/2025 11:00 AM EDT Pre-Admission Testing [facility] in [address] [place] [address] Rosalba Geller, INDUSTRIAL MAINTENANCE REPAIRER Preop examination (Primary Dx); Cataract of left eye, unspecified cataract type; Stage 3b chronic kidney disease (HCC); Hypothyroidism, unspecified type; Essential hypertension; Class 2 severe obesity due to excess calories with serious comorbidity and body mass index (BMI) of 37.0 to 37.9 in adult; History of bilateral breast cancer; Bipolar disorder with depression (HCC); Anxiety; Prediabetes 04/23/2025 12:30 PM EDT Office Visit [facility] 100 [facility] [address] [place] [phone] Diana Field MD Hypothyroidism, unspecified type (Primary Dx); Essential hypertension; Bipolar disorder with depression (HCC); History of bilateral breast cancer; Chronic kidney disease, unspecified CKD stage; Prediabetes 04/23/2025 Scanned Document [facility] 100 [facility] [address] [place] [address] Diana Field MD from Last 3 Months Immunizations Immunization Administration Dates Next Due Influenza (AFLURIA/FLUZONE) Inactivated/Split Quadrivalent with Preservative IM 05/04/2009 Influenza High-Dose Quadrivalent,(FLUZONE HIGH-DOSE), Perservative Free IM 0.7 mL 65 years and older 05/20/2023,06/23/2022 Influenza High-Dose Trivalent,(FLUZONE HIGH-DOSE), Perservative Free IM 0.5 mL 65 years and older 08/09/2024 Influenza Inactivated/Split Preservative Free IM 06/17/2020,06/07/2019,06/16/2015 Influenza, Quadrivalent (FLU AD) Adjuvanted Preservative Free IM 65 years and older 06/16/2021 Influenza, Quadrivalent (FLU ARIX, AFLURIA, FLULAVAL, FLUZONE) Preservative Free IM 07/04/2018,08/05/2017,06/16/2015,2008 Influenza, Quadrivalent (FLU CELVAX) MDCK, Preservative Free IM 07/04/2018,08/05/2017 Influenza, Unspecified 06/07/2023,07/27/2021 Zoster Vaccine Recombinant (Shingrix) 10/05/2021 ,08/02/2021 Family History Medical History Relation Name Comments Lung cancer Brother 2 Thomas Alcohol abuse Brother 3 Jayy Hypertension Brother 3 Jayy Prostate cancer Brother 3 Jayy Hypertension Father Prostate cancer Father Skin cancer Maternal Grandmother Prostate cancer Maternal Uncle Osteoporosis Mother Breast cancer Niece Breast cancer Other Pat 1st Cou,1st rem unclear if genetic testing was performed Breast cancer Paternal Aunt 1 Breast cancer Paternal Aunt 2 Colon cancer Paternal Cousin Breast cancer Sister 1 later diagnose d with metastatic disease of unclear primary at age 52 Relation Name Status Comments Brother 1 Victor Manuel Alive Brother 2 Thomas Brother 3 Jayy Alive Father (Age 95) Maternal Grandfather (Age 70) Maternal Grandmother (Age 89) Maternal Uncle Mother (Age 82) Niece Alive Breast cancer a ge 49 - Bilateral Mastectomy Other Pat 1st Cou,1st rem (Age 40) Paternal Aunt 1 (Age 64) Paternal Aunt 2 (Age 33) Paternal Cousin Alive Paternal Grandfather Paternal Grandmother Sister 1 (Age 55) Sister 2 Alive Social History Tobacco Use Types Packs/Day Years Used Date Smoking Tobacco: Never Smokeless Tobacco: Never Tobacco Cessation:Counseling Given: Not Answered Alcohol Use Standard Drinks/Week Comments No 0 (1 standard drink = 0.6 oz pur e alcohol) [facility] Utilities Answer Date Recorded In the past 12 months has e electric, gas, oil, or water company threatened to shut off services in your home? No 10/21/2024 Social Connection and Isolation Panel Answer Date Recorded In a typical week, how many times do you talk on the phone with family, friends, or neighbors? Once a week 10/21/2024 Frequency of Social Gatherings with Friends and Family Not on file 10/21/2024 Attends Jehovah'[employer] Witness Services Not on file 10/21 Active Member of Clubs or Organizations Not on f ile 10/21/2024 Attends Club or Organization Meetings Not on samson e 10/21/2024 Marital Status Not on file 10/21/2024 AUDIT-C Answer Date Recorded Q1: How often do you have a drink containing alcohol? Never 04/23/2025 Q2: How many drinks containi ng alcohol do you have on a typical day when you are drinking? Patient does not drink Q3: How often do you have si x or more drinks on one occasion? Never 04/23/2025 PHQ-2 Answer Date Recorded PHQ-2 Total Score [...] any time in the past 12 m [facility], were you homeless or living in a care home (including now)? No 10/21/2024 Physical Activity Answer [...] file Not on file Not on file Last Filed Vital Signs Vital Sign Reading Time Taken Comments Blood Pressure 122/78 05/02/2025 11:07 AM EDT Pulse 100 05/02/2025 11:07 AM EDT Temperature 36.2 C (97.1 F) 05/02/2025 11:07 AM EDT Respiratory Rate 18 05/02/2025 11:07 AM EDT Oxygen Saturation 97% 05/02/2025 11:07 AM EDT Inhaled Oxygen Concentration - - Weight 97.1 kg (214 lb) 05/19/2025 11:37 AM EDT Height 160 cm (5' 3 ) 05/19/2025 11:37 AM EDT Body Mass Index 37.91 05/19/2025 11:37 AM EDT Plan of Treatment Upcoming Encounters Date Type Department Care Team (Late st Contact Info) Description 08/12/2025 1:45 PM EST Office Visit [facility] [place] [address] [place] [phone] Sherly Parra MD [address] [place] [address] 10/22/2025 10:45 AM EDT Office Visit [facility] 100 [facility] [address] [place] [phone] Diana Field MD [address] [place], [place] [id number] Health Maintenance Due Date Last Done Comments Advance Care Planning 1955 DTaP/Tdap/Td Vaccines (1 - Tdap) 02/05/1975 Pneumococcal Vaccines 50+ (1 of 1 - PCV) 02/05/2006 RSV Vaccine 50 years and older and Patients (1 - Risk 50-74 years 1-dose series) 02/05/2006 Colonoscopy 03/09/2024 03/09/2021 Influenza Vaccine 02/21/2025 08/09/2024, , 05/20/2023, Additional history exists COVID-19 Vaccine (2024- season) 2025 08/09/2024, 05/20/2023, 02/15/2022, Additional history exists Physical 10/22/2025 10/22/2024 Annual Wellness Visit 10/23/2025 10/22/2024, 024 Mammogram 06/27/2026 06/27/2025, 08/2023, 06/22/2023, Additional history exists DXA Bone Density (Females,Ages 65 and older) 12/23/2026 12/23/2024, 05/16/2022, 05/04/2020, Additional history exists Hepatitis C Virus Screening Completed 03/20/2019 Zoster (Shingles) Vaccine Completed 10/05/2021, 04/2022 Hepatitis B Vaccines Aged Out No long er eligible based on patient's age to complete this topic Medical Devices Implanted Type Area Meat Cutter Device Identifier Shelf Expiration Date Model / Serial / Lot Ccwet0.235 [employer] (Uv) Ccwet0.235 - [id number] Implanted:Qty: 1 on 05/26/2025 by Hiram Laguerre MD at [facility] [place] [employer] CCWET0.230 / [id number] / Procedures Procedure Name Priority Date/Time Associated Diagnosis Comments MG SCREENING DIGITAL BREAST ZAHRA- BILATERAL Routine 06/27/2025 1:58 PM EST US KIDNEY AND BLADDER Routine 06/18/2025 12:57 PM EST OH XCAPSL CTRC RMVL INSJ IO LENS PROSTH W/O ECP 05/26/2025 11:55 AM EST Nuclear sclerotic cataract of left eye HX PHYSICIAN ORDER 05/26/2025 HX OUTSIDE ORDER Routine 05/02/2025 10:5 6 PM EDT BASIC METABOLIC PANEL Routine 05/02/2025 11:14 AM EDT DEXA BONE DENSITY HIP/PELVIS/SPINE W/FX EVAL Routine 12/23/2024 3:16 PM EDT Post-menopausal HEPATITIS C VIRUS (HCV) ANTIBODY Routine 03/20/2019 7:47 AM EDT from Last 3 Months or Most Recently Relevant to Health Maintenance Results * MG SCREENING DIGITAL BREAST ZAHRA- BILATERAL (06/27/2025 1:58 PM EST) Anatomical Region Laterality Modality Other 06/27/2025 1:15 PM EST 06/27/2025 1:15 PM EST Impressions 06/28/2025 6:59 PM EST There is no mammographic evidence of malignancy. Routine follow-up mammogram in 1 year is recommended. The patient will receive a lay summary of the results of this breast imaging exam. Lay summaries for mammography examinations will also identify the patients personal breast tissue composition as required by state law. BIRADS Category 2: Benign Thank you for referring your patient to us, Jayy Garza MD [phone] (Electronically Signed - 06/28/2025 18:59) Copy: TANA STEVENSON MD [facility] [address] [place] [address] GABY SOLOMON MD [facility] [address] [place] [address] Narrative 06/28/2025 6:59 PM EST HISTORY: Patient is 70 years old and is seen for screening. The patient has a history of left lumpectomy in May, - DCIS, left stereotactic core biopsy in March, - xs 2 areas., right lumpectomy in June, - DCIS and right ultrasound core biopsy in March, - DCIS. The patient has a history of Stereotactic Guided Breast Biopsy procedure revealed dCIS (Ductal Carcinoma in-situ) in the left breast in March, and Ultrasound guided biopsy procedure revealed invasive Mammary Carcinoma- type not specified in the right breast in March,. The patient has the following family history of breast cancer: niece, breast cancer; paternal aunt, at age 32; paternal aunt, at age 62 and sister, at age 45. FILMS COMPARED: The present examination has been compared to prior imaging studies dated 04/01/2021, 06/03/2022, 06/22/2023 and 06/24/2024. ZAHRA STATEMENT: Computer-aided detection was utilized by the radiologist in the interpretation of this examination. 3D tomosynthesis digital mammographic images were obtained using standard projections. MAMMOGRAM FINDINGS: The breasts are heterogeneously dense, which may obscure small masses. (ACR BIRADS density Category c) * Finding 1: There is a stable oval mass measuring 5 millimeters with a few associated calcifications seen in the middle third of the right breast upper inner quadrant at 1 oclock. Finding 2: There are a stable post-lumpectomy changes seen in the posterior third of the right breast upper outer quadrant at 10 oclock. Finding 3: There is a stable focal asymmetry measuring 10 millimeters seen in the posterior third of the left breast at 12 oclock. Finding 4: There are a stable post-surgical changes seen in the left breast at 3 oclock, central region. Procedure Note Jayy Garza MD - 06/28/2025 HISTORY: Patient is 70 years old and is seen for screening. The patient has a history of left lumpectomy in May, - DCIS,left stereotactic core biopsy in March, - xs 2 areas., rightlumpectomy in June, - DCIS and right ultrasound core biopsy inS2018 - DCIS. The patient has a history of Stereotactic Guided Breast Biopsy procedure revealed dCIS(Ductal Carcinoma in-situ) in the left breast in March, andUltrasound guided biopsy procedure revealed invasive Mammary Carcinoma-type not specified in the right breast in March,. The patient has the following family history of breast cancer: niece,breast cancer; paternal aunt, at age 32; paternal aunt, at age 62 andsister, at age 45. FILMS COMPARED: The present examination has been compared to prior imaging studies dated04/01/2021, 06/03/2022, 06/22/2023 and 06/24/2024. ZAHRA STATEMENT: Computer-aided detection was utilized by the radiologist in theinterpretation of this examination. 3D tomosynthesis digital mammographic images were obtained using standardprojections. MAMMOGRAM FINDINGS: The breasts are heterogeneously dense, which may obscure small masses.(ACR BIRADS density Category c) * Finding 1: There is a stable oval mass measuring 5 millimeters with a fewassociated calcifications seen in the middle third of the right breastupper inner quadrant at 1 oclock. Finding 2: There are a stable post-lumpectomy changes seen in theposterior third of the right breast upper outer quadrant at 10 oclock. Finding 3: There is a stable focal asymmetry measuring 10 millimetersseen in the posterior third of the left breast at 12 oclock. Finding 4: There are a stable post-surgical changes seen in the leftbreast at 3 oclock, central region. IMPRESSION: There is no mammographic evidence of malignancy. Routine follow-up mammogram in 1 year is recommended. The patient will receive a lay summary of the results of this breastimaging exam. Lay summaries for mammography examinations will alsoidentify the patients personal breast tissue composition as required [facility] law. BIRADS Category 2: Benign Thank you for referring your patient to us, Jayy Garza MD [phone] (Electronically Signed - 06/28/2025 18:59) Copy: TANA STEVENSON MD [facility] [address] [place] [address] GABY SOLOMON MD [facility] [address] [place] [address] us Rad-Self Referred IMG LEGACY PROCEDURES Final Result * US KIDNEY AND BLADDER (06/18/2025 12:57 PM EST) Anatomical Region Laterality Modality Other 06/18/2025 12:4 5 PM EST 06/18/2025 12:45 PM EST Narrative 06/20/2025 12:30 PM EST EXAMINATION: US RETROPERITONEAL COMPLETE (RENAL) CLINICAL INFORMATION: Chronic kidney disease, unspecified. COMPARISON: None available. TECHNIQUE: Real-time imaging of the kidneys and bladder. FINDINGS: RIGHT KIDNEY: 9.1 x 3.7 x 4.3 cm (SAG x AP x TRV). The kidney is normal in size, contour, and echogenicity. Renal cortical thickness is normal. No calculi or focal parenchymal lesions. No hydronephrosis. Mild right renal pelvic fullness. LEFT KIDNEY: 9.9 x 4.4 x 4.0 cm (SAG x AP x TRV). The kidney is normal in size, contour, and echogenicity. Renal cortical thickness is normal. No calculi or focal parenchymal lesions. No hydronephrosis. BLADDER: Well distended and normal. Bilateral ureteral jets are not demonstrated. Prevoid bladder volume is 201.9 mL. Postvoid bladder volume is 15.0 mL. IMPRESSION: 1. No nephrolithiasis or hydronephrosis. 2. Mild right renal pelvic fullness. 3. Postvoid bladder volume of 15.0 mL with nonvisualization of either ureteral jet. Electronically signed by: Sada Sage MD 06/20/2025 12:30 PM EST RP Thank you for referring your patient to us, Sada Limabertha [phone] (Electronically Signed - 06/20/2025 12:30) Copy: PATIENT , Procedure Note Sada Sage MD - 06/20/2025 EXAMINATION: US RETROPERITONEAL COMPLETE (RENAL) CLINICAL INFORMATION: Chronic kidney disease, unspecified. COMPARISON: None available. TECHNIQUE: Real-time imaging of the kidneys and bladder. FINDINGS: RIGHT KIDNEY: 9.1 x 3.7 x 4.3 cm (SAG x AP x TRV). The kidney is normal insize, contour, and echogenicity. Renal cortical thickness is normal. Nocalculi or focal parenchymal lesions. No hydronephrosis. Mild right renalpelvic fullness. LEFT KIDNEY: 9.9 x 4.4 x 4.0 cm (SAG x AP x TRV). The kidney is normal insize, contour, and echogenicity. Renal cortical thickness is normal. Nocalculi or focal parenchymal lesions. No hydronephrosis. BLADDER: Well distended and normal. Bilateral ureteral jets are notdemonstrated. Prevoid bladder volume is 201.9 mL. Postvoid bladder volumeis 15.0 mL. IMPRESSION: 1. No nephrolithiasis or hydronephrosis. 2. Mild right renal pelvic fullness. 3. Postvoid bladder volume of 15.0 mL with nonvisualization of eitherureteral jet. Electronically signed by: Sada Sage MD 06/20/2025 12:30 PM EST RPWorkstation: [id number] Thank you for referring your patient to us, Maevealbert Sage [phone] (Electronically Signed - 06/20/2025 12:30) Copy: PATIENT , Vin Jane MD IMG LEGACY PROCEDURES Final Re sult * Physician Order (05/26/2025) Narrative 05/26/2025 Ordered by an unspecified provider. us Generic Provider HX AMB PROCEDURES Final Result * OUTSIDE ORDER (05/02/2025 10:56 PM EDT) us External Provider HX AMB PROCEDURES Final Res ult * (ABNORMAL) Basic Metabolic Panel (05/02/2025 11:14 AM EDT) Glucose 97 65 - 99 mg/dL 05/02/2025 6:03 PM [facility] Comment:Fasting: <100 mg/dL, Non-Fasting: <200 mg/dL (ADA 2004) Blood Urea Nitrogen (BUN) 14 8 - 21 mg/dL 05/02/2025 6:03 PM [facility] Creatinine 1.11(H) 0.40 - 1.10 mg/dL 05/02/2025 6:03 PM [facility] eGFR 54(L) >59 05/02/2025 6:03 PM [facility] Comment:CKD-EPI (2020) in mL /min/1.73 sq meters. Sodium 138 136 - 145 mmol/L 05/02/2025 6:03 PM [facility] Potassium 4.0 3.4 - 5.3 mmol/L 05/02/2025 6:03 PM [facility] Chloride 102 98 - 107 mmol/L 05/02/2025 6:03 PM [facility] CO2 21(L) 22 - 33 mmol/L 05/02/2025 6:03 PM [facility] Anion Gap 15 7 - 17 05/02/2025 6:03 PM [facility] Calcium 9.3 8.7 - 10.5 mg/dL 05/02/2025 6:03 PM [facility] BUN/Creatinine Ratio 13 10.0 - 25.0 Ratio 05/02/2025 6:03 PM [facility] 05/02/2025 11:1 4 AM EDT 05/02/2025 5:14 PM EDT Rosalba Geller INDUSTRIAL MAINTENANCE REPAIRER LAB BLOOD ORDERABLES [place] [address], [facility] [address] [place] [address] * DEXA Bone density-Hip/pelvis/spine w/fx eval (12/23/2024 3:16 PM EDT) Anatomical Region Laterality Modality Digital Radiogra phy 12/23/2024 2:30 PM EDT 12/23/2024 2:30 PM EDT Impressions 12/24/2024 10:40 AM EDT 1. DIAGNOSIS: Osteopenia based on the lowest T-score value of -1.3 in the femoral neck applying World Health Organization criteria. 2. 10-YEAR FRACTURE RISK PREDICTION, FRAX: Major osteoporotic fracture (clinical spine, forearm, hip or shoulder) 13.8%. Hip fracture 1.5%. 3. Treatment Recommendations: NOF guidelines recommend consideration for treatment in postmenopausal women and men age 50 and older presenting with the following: -A hip or vertebral (clinical or morphometric) fracture. -T-score less than or equal to -2.5 at the femoral neck or spine after appropriate evaluation to exclude secondary causes. -Low bone mass at the hip or spine and a 10-year fracture probability by FRAX of greater than or equal to 3% for hip fracture or greater than or equal to 20% for major osteoporotic fracture based on the [place] adapted WHO algorithm. 4. Other Recommendations: All treatment decisions require clinical judgment and consideration of individual patient factors, including patient preferences, comorbidities, previous drug use, risk factors not captured in the FRAX model (e.g. frailty, falls, vitamin D deficiency, increased bone turnover, interval significant decline in bone density) and possible under or overestimation of fracture risk by FRAX. Additional medical evaluation for secondary cause of low bone mineral density may be appropriate. FUTURE SCAN RECOMMENDATION: People with diagnosed cases of osteoporosis or at high risk for fracture should have regular bone mineral density tests. For patients eligible for Medicare, routine testing is allowed once every 2 years. The testing frequency can be increased to one year for patients who have rapidly progressing disease, those who are receiving or discontinuing medical therapy to restore bone mass, or have additional risk factors. Electronically signed by: Pacheco Jones MD 12/24/2024 10:40 AM EDT Thank you for referring your patient to us, Pacheco Jones MD [phone] (Electronically Signed - 12/24/2024 10:40) Narrative 12/24/2024 10:40 AM EDT EXAMINATION: BONE DENSITOMETRY CLINICAL INDICATION: Other primary ovarian failure. COMPARISON: Previous BD dated 05/13/2022 and baseline BD dated 03/13/2018. TECHNIQUE: Using a [employer] Advance DXA system (software version: 14.10) manufactured by [employer], dual-energy x-ray absorptiometry was performed of the lumbar spine and left hip. The images are of good technical quality. Summary results are attached. FINDINGS: AP SPINE L1-L4: Current: BMD 1.150 g/cm2, Z-score 1.3, T-score -0.4, normal, 2.8% increase from previous, 4.9% decrease from baseline (<5% change is not significant). Prior: BMD 1.119 g/cm2. Baseline: BMD 1.209 g/cm2. LEFT FEMUR, NECK: Current: BMD 0.854 g/cm2, Z-score 0.3, T-score -1.3, osteopenia. Prior: BMD 0.900 g/cm2. Baseline: BMD 0.958 g/cm2. LEFT FEMUR, TOTAL: Current: BMD 0.907 g/cm2, Z-score 0.6, T-score -0.8, normal, 3.8% decrease from previous, 14.4% decrease from baseline (<5% change is not significant). Prior: BMD 0.943 g/cm2. Baseline: BMD 1.059 g/cm2. IDENTIFIED RISK FACTORS: Menopause, history of fracture (adult), kidney disease. HISTORY OF FRACTURE: Other. MEDICATIONS: Calcium supplements or multivitamin, vitamin D. Procedure Note Pacheco Jones MD - 12/24/2024 EXAMINATION: BONE DENSITOMETRY CLINICAL INDICATION: Other primary ovarian failure. COMPARISON: Previous BD dated 05/13/2022 and baseline BD dated 03/13/2018. TECHNIQUE: Using a [employer] DXA system (software version:14.10) manufactured by [employer], dual-energy x-rayabsorptiometry was performed of the lumbar spine and left hip. The imagesare of good technical quality. Summary results are attached. FINDINGS: AP SPINE L1-L4: Current: BMD 1.150 g/cm2, Z-score 1.3, T-score -0.4, normal, 2.8% increasefrom previous, 4.9% decrease from baseline (<5% change is notsignificant). Prior: BMD 1.119 g/cm2. Baseline: BMD 1.209 g/cm2. LEFT FEMUR, NECK: Current: BMD 0.854 g/cm2, Z-score 0.3, T-score -1.3, osteopenia. Prior: BMD 0.900 g/cm2. Baseline: BMD 0.958 g/cm2. LEFT FEMUR, TOTAL: Current: BMD 0.907 g/cm2, Z-score 0.6, T-score -0.8, normal, 3.8% decreasefrom previous, 14.4% decrease from baseline (<5% change is notsignificant). Prior: BMD 0.943 g/cm2. Baseline: BMD 1.059 g/cm2. IDENTIFIED RISK FACTORS: Menopause, history of fracture (adult), kidney disease. HISTORY OF FRACTURE: Other. MEDICATIONS: Calcium supplements or multivitamin, vitamin D. IMPRESSION: 1. DIAGNOSIS: Osteopenia based on the lowest T-score value of -1.3 in thefemoral neck applying World Health Organization criteria. 2. 10-YEAR FRACTURE RISK PREDICTION, FRAX: Major osteoporotic fracture(clinical spine, forearm, hip or shoulder) 13.8%. Hip fracture 1.5%. 3. Treatment Recommendations: NOF guidelines recommend consideration fortreatment in postmenopausal women and men age 50 and older presenting withthe following: -A hip or vertebral (clinical or morphometric) fracture. -T-score less than or equal to -2.5 at the femoral neck or spine afterappropriate evaluation to exclude secondary causes. -Low bone mass at the hip or spine and a 10-year fracture probability byFRAX of greater than or equal to 3% for hip fracture or greater than orequal to 20% for major osteoporotic fracture based on the [place] adapted WHOalgorithm. 4. Other Recommendations: All treatment decisions require clinicaljudgment and consideration of individual patient factors, includingpatient preferences, comorbidities, previous drug use, risk factors notcaptured in the FRAX model (e.g. frailty, falls, vitamin D deficiency, increased bone turnover, interval significantdecline in bone density) and possible under or overestimation of fracturerisk by FRAX. Additional medical evaluation for secondary cause of lowbone mineral density may be appropriate. FUTURE SCAN RECOMMENDATION: People with diagnosed cases of osteoporosis or at high risk for fractureshould have regular bone mineral density tests. For patients eligible forMedicare, routine testing is allowed once every 2 years. The testingfrequency can be increased to one year for patients who have rapidly progressing disease, those who arereceiving or discontinuing medical therapy to restore bone mass, or haveadditional risk factors. Electronically signed by: Pacheco Jonse MD 12/24/2024 10:40 AM EDT RPWorkstation: [id number] Thank you for referring your patient to us, Pacheco Jones MD [phone] (Electronically Signed - 12/24/2024 10:40) Diana Field MD IMG DXA ORDERABLES Final R esult * Hepatitis C Virus (HCV) Antibody (03/20/2019 7:47 AM EDT) Hepatitis C Antibody NON-REACT HARRISON NON-REACT HARRISON [facility] Hepatitis C Antibody (s/co) 0.08 <1.00 [facility] Comment: HCV antibody was non-reactive. There is no laboratory evidence of HCV infection. In most cases, no further action is required. However, if recent HCV exposure is suspected, a test for HCV RNA (test code 14863) is suggested. For additional information please refer to http://education.[employer]/faq/FZA95s0 (This link is being provided for informational/ educational purposes only.) 03/20/2019 7:47 AM EDT 03/20/2019 7:48 AM EDT Narrative [facility] - 03/20/2019 10:54 PM EDT FASTING:YES FASTING: YES Resulting Agency Comment Performing Organization Information: Site ID: [id number] Name: [facility] Address: [address] [place] [address], [place] [address] Director: Jose Rodgers MD Diana Field MD LAB BLOOD ORDERABLES Final Result [facility] [address] [place] [address], [place] [address] from Last 3 Months or Most Recently Relevant to Health Maintenance Insurance [employer] MEDICARE MEDICARE PART A & B [facility] Advance Directives * Full Code (Latest Code Status on File) Date Activated Date Inactivated Comments 07/02/2020 12:26 PM 05/26/2025 9:19 AM * Full Code Date Activated Date Inactivated Comments 06/11/2020 7:15 AM 07/02/2020 11:54 AM * Full Code Date Activated Date Inactivated Comments 07/22/2019 8:35 AM 06/11/2020 6:51 AM Care Teams Electrical Electronics Engineer Relationship Specialty Start Date End Date Diana Field MD PCP - General Internal Medicine 02/22/16 Diana Field MD [address] [place] [address] PCP - [employer] Medicare Attributed 03/24/22 Kenzie Neely MD [address] [place] [address] Physician Obstetrics and Gynecology 01/04/19 Sahil Ignacio MD [address] [place] [address] Cardiovascular Disease 06/27/19 Gaby Solomon MD [address] [phone] Hematology Oncology 08/20/19 Cheryle Garcia MD [address] [phone] Radiation Oncology 08/20/19 Tana Stevenson MD [address] [place] [address] Surgery, Breast 05/28/20 Jsoelo Arnold MD [address] [place] [address] Surgery, Orthopedic 11/19/20 Bonnie Garrett MD [address] [place] [address] Psychiatrist Psychiatry, General 11/07/22 Sherly Parra MD [address] [place] [address] Endocrinology 07/25/23 Hodan Lemon [address] [facility] [address] [place] [address] ICP Community Social Services Assistant 02/25/25
--- OUTSIDE RECORDS SUMMARY | 2025-07-03 00:29 | XMS_ITS | Encounter Summary ---
Author Organization [facility] Address [address] [place] [address] Care Team Providers Care Director Of Vocational Guidance Name Role Phone Diana Field MD Primary Care Provider Kenzie Neely MD Unavailable Sofi Hinson RN Unavailable Unavaila ble Sahil Ignacio MD Unavailable [phone] DosHilaria love MD Unavailable Cheryle Garcia MD Unavailable Rafia Stevenson MD Unavailable [phone] Joselo Arnold MD Unavailable [phone] Karma Kahn RN Unavailable [phone] Jenn David DO Unavailable [phone] DostHilaria MD Unavailable Diana Field MD Unavailable [phone] Bonnie Garrett MD Unavailable Unavailable Sherly Parra MD Unavailable Ilana Jeffery LCSW Unavailable [phone] Hodan Lemon Unavailable Encounter Details Date Type Department Care Team (Late st Contact Info) Description 07/01/2019 Scanned Document [address] [phone] Diana Field MD [address] [place] [phone] Social History Tobacco Use Types Packs/Day Years [...] Description 08/12/2025 1:45 PM EST Office Visit [facility] [address] [phone] Sherly Parra MD [address] [place] [phone] 10/22/2025 10:45 AM EDT Office Visit [address] [phone] Diana Field MD [address] [place] [phone] documented as of this encounter Visit Diagnoses Not on filedocumented in this encounter Care Teams Director Of Vocational Guidance Relationship Specialty Start Date End Date Diana Field MD PCP - General Internal Medicine 02/22/16 Jenn David DO [address] [place] [id number] PCP - [employer] Medicare Attributed 07/24/21 02/20/22 Hilaria Mathew MD [address] [facility] 3rd [place] [address] PCP - [employer] Medicare Attributed 02/21/22 03/23/22 Diana Field MD [address] [place] [address] PCP - [employer] Medicare Attributed 03/24/22 Kenzie Neely MD [address] [place] [address] Physician Obstetrics and Gynecology 01/04/19 Sofi Hinson, RN [address] [address] Oncology Nurse Navigator 04/25/19 04/23/21 Sahil Ignacio MD [address] [place] [address] Cardiovascular Disease 06/27/19 Hilaria Mathew MD [address] [place] [address] Hematology Oncology 08/20/19 Cheryle Garcia MD [address] [place] [address] Radiation Oncology 08/20/19 Rafia Stevenson MD [address] [facility] [address] [place] [address] Surgery, Breast 05/28/20 Joselo Arnold MD [address] [place] [address] Surgery, Orthopedic 11/19/20 Karma Kahn, RN [address] [facility] [address] [place] [address] ICP Community Voice Studies Director 07/27/21 02/07/25 Bonnie Garrett MD [address] [place] [address] Psychiatrist Psychiatry, General 11/07/22 Sherly Parra MD [address] [place] [address] Endocrinology 07/25/23 Ilana Jeffery LCSW [address] [address] ICP Community Voice Studies Director 02/07/25 02/25/25 Hodan Lemon [address] [address] ICP Community Voice Studies Director 02/25/25 documented as of this encounter
--- OUTSIDE RECORDS SUMMARY | 2025-07-03 00:29 | XMS_ITS ---
Author Name [facility] Organization Unknown Results Test Name/Text Value Interpretation Date Range Source Anion Gap Bld-sCnc 15.0 05/02/2025 7 - 17 [facility] Creat SerPl-mCnc 1.11 mg/dL Above high normal 05/02/2025 0.4 - 1.1 [facility] CO2 SerPl-sCnc 21.0 mmol/L Below low normal 05/02/2025 22 - 33 [facility] Sodium SerPl-sCnc 138.0 mmol/L 05/02/2025 136 - 14 5 [facility] GFR/BSA.pred SerPlBld KNQ-XPK-AsIRhd 54.0 Below low normal 05/02/2025 59 - [facility]CT Potassium SerPl-sCnc 4.0 mmol/L 05/02/2025 3.4 - 5 .3 [facility] Chloride SerPl-sCnc 102.0 mmol/L 05/02/2025 98 - 1 07 [facility] Calcium SerPl-mCnc 9.3 mg/dL 05/02/2025 8.7 - 10.5 [facility] Glucose SerPl-mCnc 97.0 mg/dL 05/02/2025 65 - 99 [facility] BUN SerPl-mCnc 14.0 mg/dL 05/02/2025 8 - [address] BUN/Creat SerPl 13.0 Ratio 05/02/2025 10 - 25 HH CCT T4 Free SerPl-mCnc 1.4 ng/dL Normal 03/18/2025 0.8 - 1.8 [facility] TSH SerPl-aCnc 1.65 mIU/L Normal 03/18/2025 0.4 - 4.[address] T4 Free SerPl-mCnc 0.8 ng/dL Normal 12/10/2024 0.8 - 1.8 [facility] TSH SerPl-aCnc 51.32 mIU/L Above high normal 12/10/2024 0.4 - 4.5 [facility] Trigl SerPl-mCnc 240.0 mg/dL Above high normal 12/10/2024 - 150 [facility] HDLc SerPl-mCnc 49.0 mg/dL Below low normal 12/10/2024 - [facility] NonHDLc SerPl-mCnc 135.0 mg/dL (calc) Above high normal 12/10/2024 - 130 [facility] Cholest/HDLc SerPl 3.8 (calc) Normal 12/10/2024 - 5 [facility] Cholest SerPl-mCnc 184.0 mg/dL Normal 12/10/2024 - 200 [facility] LDLc SerPl Calc-mCnc 99.0 mg/dL (calc) Normal 12/10/2024 [facility] CO2 SerPl-sCnc 24.0 mmol/L Normal 12/10/2024 20 - 32 QU EST Albumin/Glob SerPl 1.2 (calc) Normal 12/10/2024 1 - 2.5 [facility] BUN SerPl-mCnc 15.0 mg/dL Normal 12/10/2024 7 - [address] eGFRcr SerPlBld CKD-EPI 2020 43.0 mL/min/1.73m2 Below low normal 12/10/2024 - [facility] Chloride SerPl-sCnc 109.0 mmol/L Normal 12/10/2024 98 - 1 10 [facility] Globulin Ser Calc-mCnc 3.6 g/dL (calc) Normal 12/10/2024 1.9 - 3.7 [facility] Sodium SerPl-sCnc 143.0 mmol/L Normal 12/10/2024 135 - 14 6 [facility] BUN/Creat SerPl 11.0 (calc) Normal 12/10/2024 6 - 22 Q [facility] Albumin SerPl-mCnc 4.2 g/dL Normal 12/10/2024 3.6 - 5.1 [facility] ALT SerPl-cCnc 9.0 U/L Normal 12/10/2024 6 - 29 [facility] T Prot SerPl-mCnc 7.8 g/dL Normal 12/10/2024 6.1 - 8.[address] Bilirub SerPl-mCnc 0.4 mg/dL Normal 12/10/2024 0.2 - 1.2 [facility] ALP SerPl-cCnc 70.0 U/L Normal 12/10/2024 37 - 153 [facility] Creat SerPl-mCnc 1.34 mg/dL Above high normal 12/10/2024 0.5 - 1.05 [facility] Calcium SerPl-mCnc 9.9 mg/dL Normal 12/10/2024 8.6 - 10.4 [facility] Glucose SerPl-mCnc 105.0 mg/dL Above high normal 12/10/2024 65 - 99 [facility] Potassium SerPl-sCnc 4.2 mmol/L Normal 12/10/2024 3.5 - 5 .3 [facility] AST SerPl-cCnc 14.0 U/L Normal 12/10/2024 10 - 35 [facility] T HbA1c MFr Bld 5.8 % Above high normal 12/10/2024 - 5.7 [facility] History of Medication Use Medication Directions Dispensed Refills Start Date End Date Stat Administer 1 drop into left eye four times a day. 05/22/2025 05/22/20 25 completed Administer 1 drop into left eye four times a day. 05/22/2025 05/22/20 25 completed Administer 1 drop into left eye once per day. 05/22/2025 05/22/20 25 completed [id number] nesium sulfates (SUPREP BOWEL PREP) 17.5-3.13-1.6 GM/177ML Solution solution Take as directed for Colonoscopy/GI Procedure. See administration instructions. 05/19/2025 active levothyroxine (SYNTHROID, LEVOTHROID) 125 MCG tablet Take 1 tablet (125 mcg total) by mouth daily on an empty stomach. 07/25/2023 active Atenolol 50mg Tablet 03/28/2023 active CALCIUM 03/28/2023 active Clonazepam 1mg Tablet 03/28/2023 active [place] Carbonate 450mg Extended-Release Tablet 03/28/2023 active Loxapine Succinate 5mg Capsule 03/28/2023 active Tranylcypromine Sulfate 10mg Tablet 03/28/2023 activ e calcium carbonate-vitamin D (OSCAL) tablet Take 1 tablet by mouth 2 (two) times a day with meals. With food 01/30/2023 01/30/20 24 active levothyroxine (SYNTHROID, LEVOTHROID) 100 MCG tablet LT4 100mcg, 1 tablet daily M-Sat and take 1.5 tablets on Sundays. 01/23/2023 active atenolol (TENORMIN) 50 MG tablet Take 1 tablet (50 mg total) by mouth daily. 01/09/2023 active amLODIPine (NORVASC) 5 MG tablet TAKE ONE TABLET BY MOUTH EVERY DAY 09/23/2022 active amLODIPine (NORVASC) 5 MG tablet TAKE ONE TABLET BY MOUTH EVERY DAY 03/27/2022 active anastrozole (ARIMIDEX) 1 MG tablet TAKE ONE TABLET BY MOUTH EVERY DAY 03/24/2022 03/06/20 25 active atenolol (TENORMIN) 50 MG tablet TAKE ONE TABLET BY MOUTH EVERY DAY 01/10/2022 active levothyroxine (SYNTHROID, LEVOTHROID) 100 MCG tablet Take 1 tablet (100 mcg total) by mouth daily on an empty stomach. Patient takes 100 mcg daily 10/29/2021 active econazole nitrate (SPECTAZOLE) 1 % cream Apply 60 g topically 2 (two) times a day. Twice daily 07/19/2021 active Calcium+D3 500-10 MG-MCG Tab TAKE ONE TABLET BY MOUTH TWICE A DAY WITH FOOD 04/19/2021 12/04/19 25 active metroNIDAZOLE (METROGEL) 1 % gel APPLY TO FACE NIGHTLY 05/28/2020 active hydrocortisone (HYTONE) 2.5 % ointment Apply topically as needed. 01/29/2018 active lithium carbonate (LITHOBID) 300 MG 12 hr CR tablet Take 450 mg by mouth daily. 11/15/2017 active clonazePAM (KlonoPIN) 0.5 MG tablet ClonazePAM 1.5 MG Oral Tablet daily 12/25/2012 active Ativan completed amlodipine completed anastrozole completed atenolol completed clobetasol 0.05 % emollient cream Apply topically 2 (two) times a day. active clonazepam completed Divalproex Sodium (DEPAKOTE PO) Take 250 mg by mouth 2 (two) times a day. active lithium carbonate comple amy LORazepam (Ativan) 0.5 MG tablet Take 0.5 mg by mouth 3 times daily (every 8 hours) as needed. active loxapine (LOXITANE) 10 MG capsule Take 5 mg by mouth nightly. active loxapine succinate compl eted melatonin 3 MG Tab tablet Take 1 tablet (3 mg total) by mouth nightly. active tranylcypromine complete d tranylcypromine (PARNATE) 10 MG tablet Take 1 tablet (10 mg total) by mouth 3 (three) times a day. Patient reports she takes 3 in the morning active Allergies Allergen Reaction Severity Comment Documented Date Source Statu s .NO KNOWN DRUG ALLERGIES ENS_POD CRCT Problems Problem Status Onset Date Problem Type Date of Resolution Source Hypothyroidism active 2013-09-[address] Hypertensive kidney disease with stage 3 chronic kidney disease active 2013-09-17 ProblemAct [facility] Essential hypertension active 2016-12-20 ProblemAct [facility] Class 2 severe obesity due to excess calories with serious comorbidity and body mass index (BMI) of 37.0 to 37.9 in adult active 2023-07-12 ProblemAct [facility] History of bilateral breast cancer active 2025-05-02 ProblemAct [facility] Essential hypertension active 2016-12-20 ProblemAct [facility] Class 2 severe obesity due to excess calories with serious comorbidity and body mass index (BMI) of 37.0 to 37.9 in adult active 2023-07-12 ProblemAct [facility] Trouble walking active 2023-02-21 ProblemAct [facility] Intertrigo active 2018-06-16 ProblemAct [facility] Pain in joint, lower leg active 2013-09-17 ProblemAct [facility] Rosacea active 2013-09-20 ProblemAct [facility] Edema active 2013-09-17 ProblemAct [facility] Prediabetes active 2025-05-02 ProblemAct [facility] Chronic kidney disease, stage III (moderate) active 2013-09-17 ProblemAct [facility] Arthralgia active 2021-03-01 ProblemAct [facility] Chronic kidney disease, stage III (moderate) active 2013-09-17 ProblemAct [facility] Rosacea active 2013-09-20 ProblemAct [facility] Anxiety active 2025-05-02 ProblemAct [facility] Arthritis active 2017-07-24 ProblemAct [facility] Chronic fatigue syndrome active 2018-06-16 ProblemAct [facility] Bipolar disorder with depression active 2013-09-17 ProblemAct [facility] 5458230 - Heel pain active 2025-03-[address] ENS_PODCRCT Porokeratoma active 2025-03-19 EncounterDiagnosisAct ENS_PODCRCT Plantar Flexed Metatarsal - Metatarsalgia, LEFT foot active 2025-03-19 EncounterDiagnosisAct ENS_PO DCRCT Immunizations Vaccine Date Source Lot Number Status Influenza High-Dose Trivalent,(FLUZONE HIGH-DOSE), Perservative Free IM 0.5 mL 65 years and older 08/09/2024 [facility] [id number] completed Influenza, Unspecified 06/07/2023 [facility] co mpleted Influenza, Unspecified 06/07/2023 [facility] co mpleted Influenza High-Dose Quadrivalent,(FLUZONE HIGH-DOSE), Perservative Free IM 0.7 mL 65 years and older 05/20/2023 [facility] [id number] com pleted Influenza High-Dose Quadrivalent,(FLUZONE HIGH-DOSE), Perservative Free IM 0.7 mL 65 years and older 06/23/2022 [facility] [id number] com pleted Zoster Vaccine Recombinant (Shingrix) 10/05/2021 [facility] [id number] completed Zoster Vaccine Recombinant (Shingrix) 08/02/2021 [facility] [id number] completed Influenza, Unspecified 07/27/2021 [facility] co mpleted Influenza, Quadrivalent (FLU AD) Adjuvanted Preservative Free IM 65 years and older 06/16/2021 [facility] [id number] completed Influenza Inactivated/Split Preservative Free IM 06/17/2020 [facility] [id number] completed Influenza Inactivated/Split Preservative Free IM 06/07/2019 [facility] [id number] completed Influenza, Quadrivalent (FLUARIX, AFLURIA, FLULAVAL, FLUZONE) Preservative Free IM 07/04/2018 [facility] [id number] co mpleted Influenza, Quadrivalent (FLUCELVAX) MDCK, Preservative Free IM 07/04/2018 [facility] [id number] completed Influenza, Quadrivalent (FLUARIX, AFLURIA, FLULAVAL, FLUZONE) Preservative Free IM 08/05/2017 [facility] [id number] co mpleted Influenza, Quadrivalent (FLUCELVAX) MDCK, Preservative Free IM 08/05/2017 [facility] [id number] completed Influenza Inactivated/Split Preservative Free IM 06/16/2015 [facility] [id number] - FLUARIX 0.5 ML SYRINGE completed Influenza, Quadrivalent (FLUARIX, AFLURIA, FLULAVAL, FLUZONE) Preservative Free IM 06/16/2015 [facility] [id number] - FL UARIX 0.5 ML SYRINGE completed Influenza, Quadrivalent (FLUARIX, AFLURIA, FLULAVAL, FLUZONE) Preservative Free IM 06/16/2015 [facility] [id number] - FL UARIX 0.5 ML SYRINGE completed Influenza (AFLURIA/FLUZONE) Inactivated/Split Quadrivalent with Preservative IM 05/04/2009 [facility] [id number] completed Influenza, Quadrivalent (FLUARIX, AFLURIA, FLULAVAL, FLUZONE) Preservative Free IM 05/04/2009 [facility] [id number] co mpleted Encounters Encounter Type Encounter Reason Primary Diagnosis Location Date Ambulatory Sahil Ingacio MD, [facility] 06/21/2025 Ambulatory [facility] 05/27/2025 Ambulatory [facility] 05/27/2025 Ambulatory Age-related nuclear cataract, left eye Age-related nuclear cataract, left eye [facility] 05/26/2025 Ambulatory [facility] 05/22/2025 Ambulatory [facility] 05/05/2025 Ambulatory Encounter for other preprocedural examination Encounter for other preprocedural examination [facility] 05/02/2025 Ambulatory Encounter for other preprocedural examination Encounter for other preprocedural examination [facility] 05/02/2025 Ambulatory Hypothyroidism, unspecified Hypothyroidism, unspecified [facility] 04/23/2025 Ambulatory aShil Ignacio MD, [facility] 03/06/2025 Ambulatory Sahil Ignacio MD, [facility] 03/06/2025 Ambulatory Encounter for other preprocedural examination Encounter for other preprocedural examination [facility] 02/19/2025 Ambulatory [facility] 11/19/2024 Ambulatory Encounter for genera l adult medical examination without abnormal findings Encounter for general adult medical examination without abnormal findings [facility] 10/22/2024 Ambulatory Encounter for genera l adult medical examination without abnormal findings Encounter for general adult medical examination without abnormal findings [facility] 06/14/2024 Ambulatory Other specified hypothyroidism Other specified hypothyroidism [facility] 01/23/2024 Ambulatory Hypothyroidism, unspecified Hypothyroidism, unspecified [facility] 01/02/2024 Ambulatory Other specified hypothyroidism Other specified hypothyroidism [facility] 07/25/2023 Ambulatory Hypothyroidism, unspecified Hypothyroidism, unspecified [facility] 07/12/2023 Ambulatory Malignant neoplasm o f unspecified site of unspecified female breast Malignant neoplasm of unspecified site of unspecified female breast [facility] 03/07/2023 Ambulatory [facility] 2022 Ambulatory Other specified hypothyroidism [facility] 01/23/2023 Ambulatory Hypothyroidism, unspecified [facility] 11/09/2022 Ambulatory Personal history of malignant neoplasm of breast [facility] 11/07/2022 Ambulatory Malignant neopla sm of unspecified site of unspecified female breast [facility] 09/05/2022 Ambulatory Other specified hypothyroidism [facility] 06/27/2022 Ambulatory [facility] 04/13/2022 Ambulatory [facility] 04/11/2022 Ambulatory Pain in right knee [facility] 04/04/2022 Ambulatory Pain in right knee [facility] 04/01/2022 Ambulatory [facility] 03/30/2022 Ambulatory Pain in right knee [facility] 03/22/2022 Ambulatory Malignant neopla sm of unspecified site of unspecified female breast [facility] 03/08/2022 Ambulatory Hypothyroidism, unspecified [facility] 02/11/2022 Ambulatory Personal history of malignant neoplasm of breast [facility] 10/26/2021 Ambulatory Malignant neopla sm of unspecified site of unspecified female breast [facility] 09/06/2021 Ambulatory Other specified hypothyroidism [facility] 07/21/2021 Ambulatory Pain in right knee [facility] 06/03/2021 Ambulatory Pain in right knee [facility] 06/01/2021 Ambulatory Pain in right knee [facility] 05/27/2021 Ambulatory Pain in right knee [facility] 05/25/2021 Ambulatory Pain in right knee [facility] 05/21/2021 Ambulatory Other specified hypothyroidism [facility] 05/21/2021 Ambulatory Pain in right knee [facility] 05/19/2021 Care Team Organization Name Specialty Phone Email Start Date End [facility] 05/15/2025 [facility] 05/08/2025 [facility] 03/12/2025 [facility] 01/03/2025 [facility] ADT 01/03/2025 [facility] 10/23/202406/24 [facility] 10/08/2024 [facility] 10[facility]03/2024 [facility] [employer] 09/26/2023 12/24/2023 [facility] [place] ADT [facility] 05/30/20232024 [facility] 05/25/2023 [facility] [place] CCDA [facility] 03/03/20232024 [facility] 02/20/2023 [facility] Diana Field Primary [facility] 04/13/202206/24 [facility], [facility] 03/24/202103/11 Physicians [facility], [facility] 03/12/202103/12 [facility] 05/06/201903/22 [facility]
--- OUTSIDE RECORDS SUMMARY | 2025-07-03 00:29 | XMS_ITS | Encounter Summary ---
Author Organization [facility] Address [address] [place] [address] Care Team Providers Care Railroad Car Repairman Name Role Phone Diana Field MD Primary Care Provider + [phone] Kenzie Neely MD Unavailable Sofi Hinson RN Unavailable Unavaila ble Sahil Ignacio MD Unavailable [phone] DosHilaria love MD Unavailable Cheryle Garcia MD Unavailable [phone] Rafia Stevenson MD Unavailable [phone] Joselo Arnold MD Unavailable [phone] Karma Kahn RN Unavailable [phone] Jenn David DO Unavailable DostHilaria MD Unavailable Diana Field MD Unavailable [phone] Bonnie Garrett MD Unavailable Unavailable Sherly Parra MD Unavailable Ilana Jeffery LCSW Unavailable [phone] Hodan Lemon Unavailable Encounter Details Date Type Department Care Team (Late st Contact Info) Description 11/24/2020 Scanned Document [address] [phone] Diana Field MD [address] [address] Social History Tobacco Use Types Packs/Day Years [...] have Coronavirus / COVID-19? No / Unsure 10/26/2020 1:17 PM EDT documented as of this encounter Plan of Treatment Upcoming Encounters Date Type Department Care Team (Late st Contact Info) Description 08/12/2025 1:45 PM EST Office Visit [facility] Endocrinology [address] [phone] Sherly Parra MD [address] [address] 10/22/2025 10:45 AM EDT Office Visit [address] [phone] Diana Field MD [address] [address] documented as of this encounter Visit Diagnoses Not on filedocumented in this encounter Care Teams Railroad Car Repairman Relationship Specialty Start Date End Date Diana Field MD PCP - General Internal Medicine 02/22/16 Jenn David DO [address] [place] [address] PCP - [employer] Medicare Attributed 07/24/21 02/20/22 Hilaria Mathew MD [address] [facility] 3rd [place] [address] PCP - [employer] Medicare Attributed 02/21/22 03/23/22 Diana Field MD [address] [place] [address] PCP - [employer] Medicare Attributed 03/24/22 Kenzie Neely MD [address] [place] [address] Physician Obstetrics and Gynecology 01/04/19 Sofi Hinson, RN [address] [place] [address] Oncology Nurse Navigator 04/25/19 04/23/21 Sahil Ignacio MD [address] [place] [address] Cardiovascular Disease 06/27/19 Hilaria Mathew MD [address] [place] [address] Hematology Oncology 08/20/19 Cheryle Garcia MD [address] [place] [address] Radiation Oncology 08/20/19 Rafia Stevenson MD [address] [place] [address] Surgery, Breast 05/28/20 Joselo Arnold MD [address] [place] [address] Surgery, Orthopedic 11/19/20 Karma Kahn, MONA [address] [place] [address] ICP Community Design Engineer [employer] 07/27/21 02/07/25 Bonnie Garrett MD [address] [place] [address] Psychiatrist Psychiatry, General 11/07/22 Sherly Parra MD [address] [place] [address] Endocrinology 07/25/23 Ilana Jeffery LCSW [address] [facility] [address] [place] [address] ICP Community Design Engineer [employer] 02/07/25 02/25/25 Hodan Lemon [address] [address] ICP Community Design Engineer [employer] 02/25/25 documented as of this encounter
--- OUTSIDE RECORDS SUMMARY | 2025-07-03 00:29 | XMS_ITS | Encounter Summary ---
Author Organization [facility] Address [address] [place] [address] Care Team Providers Care Behavioral Assistant Name Role Phone Diana Field MD Primary Care Provider + [phone] Kenzie Neely MD Unavailable Sahil Ignacio MD Unavailable [phone] Hilaria Mathew MD Unavailable Cheryle Garcia MD Unavailable [phone] Rafia Stevenson MD Unavailable [phone] Joselo Arnold MD Unavailable [phone] Diana Field MD Unavailable [phone] Bonnie Garrett MD Unavailable Unavailable Sherly Parra MD Unavailable Hodan Lemon Unavailable Encounter Details Date Type Department Care Team (Late st Contact Info) Description 05/16/2025 Scanned Document [facility] Home Health Services, Scan Social History Tobacco Use Types Packs/Day Years Used Date Smoking Tobacco: Never Smokeless Tobacco: Never Alcohol Use Standard Drinks/Week Comments No 0 (1 standard drink = 0.6 oz pur e alcohol) [facility] Utilities Answer Date Recorded In the past 12 months has [employer], oil, or [employer] threatened to shut off services in your home? No 10/21/2024 Social Connection and Isolation Panel Answer Date Recorded In a typical week, how many times do you talk on the phone with family, friends, or neighbors? Once a week 10/21/2024 Frequency of Social Gatherings with Friends and Family Not on file 10/21/2024 Attends Taoism Services Not on file 10/21 Active Member [...] time in the past 12 m [facility], were you homeless or living in a nursing home (including now)? No 10/21/2024 Physical Activity [...] Description 08/12/2025 1:45 PM EST Office Visit [facility] Endocrinology [address] [phone] Sherly Parra MD [address] [place] [address] 10/22/2025 10:45 AM EDT Office Visit [address] [phone] Diana Field MD 100 [facility] [address] [address] documented as of this encounter Visit Diagnoses Not on filedocumented in this encounter Care Teams Behavioral Assistant Relationship Specialty Start Date End Date Diana Field MD PCP - General Internal Medicine 02/22/16 Diana Field MD [address] [address] PCP - [employer] Medicare Attributed 03/24/22 Kenzie Neely MD [address] [facility] [address] [place] [phone] Physician Obstetrics and Gynecology 01/04/19 Sahil Ignacio MD 499 [facility] [address] [place] [phone] Cardiovascular Disease 06/27/19 Hilaria Mathew MD [address] [place] [address] Hematology Oncology 08/20/19 Cheryle Garcia MD [address] [place] [address] Radiation Oncology 08/20/19 Rafia Stevenson MD [address] [facility] [address] [place] [phone] Surgery, Breast 05/28/20 Joselo Arnold MD 34 [facility] [address] [place] [address] Surgery, Orthopedic 11/19/20 Bonnie Garrett MD [address] [place] [address] Psychiatrist Psychiatry, General 11/07/22 Sherly Parra MD [address] [place] [address] Endocrinology 07/25/23 Hodan Lemon 12[address] [facility] [address] [place] [address] [facility] Community Coating Machine Feeder 02/25/25 documented as of this encounter
--- OUTSIDE RECORDS SUMMARY | 2025-07-03 00:29 | XMS_ITS | Encounter Summary ---
Author Organization [facility] Address [address] [place] [address] Care Team Providers Care Herbicide Sprayer Name Role Phone Diana Field MD Primary Care Provider Kenzie Neely MD Unavailable Sofi Hinson RN Unavailable Unavaila ble Sahil Ignacio MD Unavailable [phone] DosHilaria love MD Unavailable Cheryle Garcia MD Unavailable Rafia Stevenson MD Unavailable [phone] Joselo Arnold MD Unavailable [phone] Karma Kahn RN Unavailable [phone] Jenn David DO Unavailable [phone] DostHilaria MD Unavailable Diana Field MD Unavailable [phone] Bonnie Garrett MD Unavailable Unavailable Sherly Parra MD Unavailable Ilana Jeffery LCSW Unavailable [phone] Hodan Lemon Unavailable Encounter Details Date Type Department Care Team (Late st Contact Info) Description 04/20/2016 Scanned Document [address] [address] Provider, Generic Social History Tobacco Use Types [...] Description 08/12/2025 1:45 PM EST Office Visit [facility] Endocrinology [address] [address] Sherly Parra MD [address] [place] [address] [place] [address] 10/22/2025 10:45 AM EDT Office Visit [address] [address] Diana Field MD [address] [place] [address] documented as of this encounter Procedures Procedure Name Priority Date/Time Associated Diagnosis Comments LAB RESULT 04/20/2016 LAB RESULT 04/20/2016 documented in this encounter Results * LAB RESULT (04/20/2016) Narrative 04/20/2016 Ordered by an unspecified provider. us Generic Provider HX AMB PROCEDURES Edited Result - Final * LAB RESULT (04/20/2016) Narrative 04/20/2016 Ordered by an unspecified provider. us Generic Provider HX AMB PROCEDURES Edited Result - Final documented in this encounter Visit Diagnoses Not on filedocumented in this encounter Care Teams Herbicide Sprayer Relationship Specialty Start Date End Date Diana Field MD PCP - General Internal Medicine 02/22/16 Jenn David DO 74 [place] [address] PCP - Aetna Medicare Attributed 07/24/21 02/20/22 Hilaria Mathew MD [address] [address] PCP - Aetna Medicare Attributed 02/21/22 03/23/22 Diana Field MD [address] [place] [address] PCP - Aetna Medicare Attributed 03/24/22 Kenzie Neely MD 499 [place] [address] Physician Obstetrics and Gynecology 01/04/19 Sofi Hinson RN 499 [place] [address] Oncology Nurse Navigator 04/25/19 04/23/21 Sahil Ignacio MD 499 [place] [address] Cardiovascular Disease 06/27/19 Hilaria Mathew MD [address] [place] [address] Hematology Oncology 08/20/19 Cheryle Garcia MD 85 [place] [address] Radiation Oncology 08/20/19 Rafia Stevenson MD [address] [place] [address] Surgery, Breast 05/28/20 Joselo Arnold MD [address] [place] [address] Surgery, Orthopedic 11/19/20 Karma Kahn, RN [address] [place] [address] ICP Community Reimbursement Consultant 07/27/21 02/07/25 Bonnie Garrett MD [address] [place] [address] Psychiatrist Psychiatry, General 11/07/22 Sherly Parra MD [address] [place] [address] Endocrinology 07/25/23 Ilana Jeffery LCSW [address] [facility] [address] [place] [address] ICP Community Reimbursement Consultant 02/07/25 02/25/25 Hodan Lemon [address] [facility] [address] [place] [address] ICP Community Reimbursement Consultant 02/25/25 documented as of this encounter
--- OUTSIDE RECORDS SUMMARY | 2025-07-03 00:29 | XMS_ITS | Encounter Summary ---
Author Organization [facility] Address [address] [place] [address] Care Team Providers Care Miller Head Name Role Phone Diana Field MD Primary Care Provider Kenzie Neely MD Unavailable [phone] Sofi Hinson RN Unavailable Unavaila ble Sahil Ignacio MD Unavailable [phone] DosHilaria love MD Unavailable Cheryle Garcia MD Unavailable Rafia Stevenson MD Unavailable Joselo Arnold MD Unavailable [phone] Karma Kahn RN Unavailable [phone] Jenn David DO Unavailable [phone] DostHilaria MD Unavailable Diana Field MD Unavailable [phone] Bonnie Garrett MD Unavailable Unavailable Sherly Parra MD Unavailable Ilana Jeffery LCSW Unavailable [phone] Hodan Lemon Unavailable Encounter Details Date Type Department Care Team (Late st Contact Info) Description 07/04/2018 Scanned Document [address] [phone] Provider, Generic Social History Tobacco Use Types [...] 08/12/2025 1:45 PM EST Office Visit [facility] Endocrinology [address] [phone] Sherly Parra MD [address] [place] [address] 10/22/2025 10:45 AM EDT Office Visit [address] [phone] Diana Field MD [address] [place] [address] documented as of this encounter Visit Diagnoses Not on filedocumented in this encounter Care Teams Miller Head Relationship Specialty Start Date End Date Diana Field MD PCP - General Internal Medicine 02/22/16 Jenn David DO [address] [place] [address] PCP - Aetna Medicare Attributed 07/24/21 02/20/22 Hilaria Mathew MD [address] [place] [address] PCP - Aetna Medicare Attributed 02/21/22 03/23/22 Diana Field MD [address] [place] [address] [address] [place] [address] PCP - Aetna Medicare Attributed 03/24/22 Kenzie Neely MD 499 [facility] 220 [place] [address] Physician Obstetrics and Gynecology 01/04/19 Sofi Hinson RN 499 [facility] 220 [place] [address] Oncology Nurse Navigator 04/25/19 04/23/21 Sahil Ignacio MD 499 [facility] 220 [place] [address] Cardiovascular Disease 06/27/19 Hilaria Mathew MD 85 [place] [address] Hematology Oncology 08/20/19 Cheryle Garcia MD 85 [place] [address] Radiation Oncology 08/20/19 Rafia Stevenson MD 399 [facility] [address] [place] [address] Surgery, Breast 05/28/20 Joselo Arnold MD [address] [place] [address] Surgery, Orthopedic 11/19/20 Karma Kahn, RN [address] [place] [address] ICP Community Electric Range Preparer 07/27/21 02/07/25 Bonnie Garrett MD [address] [place] [address] Psychiatrist Psychiatry, General 11/07/22 Sherly Parra MD [address] [place] [address] Endocrinology 07/25/23 Ilana Jeffery LCSW [address] [place] [address] [address] ICP Community Electric Range Preparer 02/07/25 02/25/25 Hodan Lemon [address] [address] ICP Community Electric Range Preparer 02/25/25 documented as of this encounter
--- OUTSIDE RECORDS SUMMARY | 2025-07-03 00:29 | XMS_ITS | Encounter Summary ---
Author Organization [facility] Address [address] [place] [address] Care Team Providers Care Regulatory Compliance Coordinator Name Role Phone Diana Field MD Primary Care Provider [phone] Kenzie Neely MD Unavailable Sahil Ignacio MD Unavailable [phone] Hilaria Mathew MD Unavailable Cheryle Garcia MD Unavailable [phone] Rafia Stevenson MD Unavailable [phone] Joselo Arnold MD Unavailable [phone] Diana Field MD Unavailable [phone] Bonnie Garrett MD Unavailable Unavailable Sherly Parra MD Unavailable Hodan Lemon Unavailable Encounter Details Date Type Department Care Team (Late st Contact Info) Description 03/13/2025 Scanned Document [address] [place] [address] Primary Care, Scan Social History Tobacco Use Types Packs/Day Years Used Date Smoking Tobacco: Never Smokeless Tobacco: Never Alcohol Use Standard Drinks/Week Comments No 0 (1 standard drink = 0.6 oz pur e alcohol) [facility] Utilities Answer Date Recorded In the [...] and Family Not on file 10/21/2024 Attends Jewish Services Not on file 10/21 Active Member [...] any time in the past 12 m [facility], were you homeless or living in a fci (including now)? No 10/21/2024 Physical Activity Answer [...] 08/12/2025 1:45 PM EST Office Visit [facility] Endocrinology [place] [address] [address] Sherly Parra MD [address] [address] 10/22/2025 10:45 AM EDT Office Visit [facility] [address] [phone] Diana Field MD [address] [address] documented as of this encounter Visit Diagnoses Not on filedocumented in this encounter Care Teams Regulatory Compliance Coordinator Relationship Specialty Start Date End Date Diana Field MD PCP - General Internal Medicine 02/22/16 Diana Field MD [facility] [address] [address] PCP - Aetna Medicare Attributed 03/24/22 Kenzie Neely MD 499 [facility] [address] [place] [phone] Physician Obstetrics and Gynecology 01/04/19 Sahil Ignacio MD 499 [place] [address] Cardiovascular Disease 06/27/19 Hilaria Mathew MD [address] [place] [phone] Hematology Oncology 08/20/19 Cheryle Garcia MD 85 [place] [address] Radiation Oncology 08/20/19 Rafia Stevenson MD 399 [facility] 200 [place] [address] Surgery, Breast 05/28/20 Joselo Arnold MD [address] [address] Surgery, Orthopedic 11/19/20 Bonnie Garrett MD [address] [facility] 101 [place] [address] Psychiatrist Psychiatry, General 11/07/22 Sherly Parra MD [address] [facility] 101 [place] [address] Endocrinology 07/25/23 Hodan Lemon 1290 [facility] 4A [place] [address] [facility] Community Manager Security 02/25/25 documented as of this encounter
--- OUTSIDE RECORDS SUMMARY | 2025-07-03 00:29 | XMS_ITS | Encounter Summary ---
Author Organization [facility] Address [address] [place] [address] Care Team Providers Care Linoleum Tile Floor Layer Name Role Phone Diana Field MD Primary Care Provider [phone] Kenzie Neely MD Unavailable Sahil Ignacio MD Unavailable [phone] Hilaria Mathew MD Unavailable Cheryle Garcia MD Unavailable [phone] Rafia Stevenson MD Unavailable [phone] Joselo Arnold MD Unavailable [phone] Diana Field MD Unavailable [phone] Bonnie Garrett MD Unavailable Unavailable Sherly Parra MD Unavailable Hodan Lemon Unavailable Encounter Details Date Type Department Care Team (Late st Contact Info) Description 05/09/2025 Scanned Document [facility] 80 [facility] [place] [facility] [address] [place] [address] Provider, Generic Social History Tobacco Use Types Packs/Day Years Used Date Smoking Tobacco: Never Smokeless Tobacco: Never Alcohol Use Standard Drinks/Week Comments No 0 (1 standard drink = 0.6 oz pur e alcohol) [facility] Utilities Answer Date Recorded In the past [...] and Family Not on file 10/21/2024 Attends Pentecostal Services Not on file 10/21 Active Member [...] in the past 12 m [facility], were you homeless or living in a intermediate (including now)? No 10/21/2024 Physical Activity Answer [...] Description 08/12/2025 1:45 PM EST Office Visit [facility] Endocrinology [place] [address] [phone] Sherly Parra MD [address] [address] 10/22/2025 10:45 AM EDT Office Visit [facility] [address] [phone] Diana Field MD [address] [address] documented as of this encounter Visit Diagnoses Not on filedocumented in this encounter Care Teams Linoleum Tile Floor Layer Relationship Specialty Start Date End Date Diana Field MD PCP - General Internal Medicine 02/22/16 Diana Field MD [facility] 101 [place] [address] PCP - Aetna Medicare Attributed 03/24/22 Kenzie Neely MD 499 [facility] [address] [place] [phone] Physician Obstetrics and Gynecology 01/04/19 Sahil Ignacio MD 499 [place] [address] Cardiovascular Disease 06/27/19 Hilaria Mathew MD 85 [place] [address] Hematology Oncology 08/20/19 Cheryle Garcia MD 85 [place] [address] Radiation Oncology 08/20/19 Rafia Stevenson MD 399 [facility] 200 [place] [address] Surgery, Breast 05/28/20 Joselo Arnold MD 34 [facility] 208 [place] [address] Surgery, Orthopedic 11/19/20 Bonnie Garrett MD [address] [facility] 101 [place] [address] Psychiatrist Psychiatry, General 11/07/22 Sherly Parra MD [address] [facility] 101 [place] [address] Endocrinology 07/25/23 Hodan Lemon [address] [place] [address] [facility] 4A [place] [address] [facility] Community Soap Press Feeder 02/25/25 documented as of this encounter
--- OUTSIDE RECORDS SUMMARY | 2025-07-03 00:29 | XMS_ITS | Encounter Summary ---
Author Organization [facility] Address [address] [place] [address] Care Team Providers Care Drywall Carrier Name Role Phone Diana Field MD Primary Care Provider Kenzie Neely MD Unavailable [phone] Sofi Hinson RN Unavailable Unavaila ble Sahil Ignacio MD Unavailable [phone] DosHilaria love MD Unavailable Cheryle Garcia MD Unavailable Rafia Stevenson MD Unavailable [phone] Joselo Arnold MD Unavailable [phone] Karma Kahn RN Unavailable [phone] Jenn David DO Unavailable [phone] DostHilaria MD Unavailable Diana Field MD Unavailable [phone] Bonnie Garrett MD Unavailable Unavailable Sherly Parra MD Unavailable Ilana Jeffery LCSW Unavailable [phone] Hodan Lemon Unavailable Encounter Details Date Type Department Care Team (Late st Contact Info) Description 07/13/2020 Scanned Document [facility] Breast Care & Surgery [place] 399 [facility] [address] [place] [address] Rafia Stevenson MD 399 [facility] [address] [place] Social History Tobacco Use Types Packs/Day Years [...] have Coronavirus / COVID-19? No / Unsure 07/10/2020 2:08 PM EST documented as of this encounter Plan of Treatment Upcoming Encounters Date Type Department Care Team (Late st Contact Info) Description 08/12/2025 1:45 PM EST Office Visit [facility] Endocrinology [address] [phone] Sherly Parra MD [address] [place] [address] 10/22/2025 10:45 AM EDT Office Visit [address] [phone] Diana Field MD [address] [place] [address] documented as of this encounter Visit Diagnoses Not on filedocumented in this encounter Care Teams Drywall Carrier Relationship Specialty Start Date End Date Diana Field MD PCP - General Internal Medicine 02/22/16 Jenn David DO 74 [place] [address] PCP - Aetna Medicare Attributed 07/24/21 02/20/22 [place] [address] [place] [address] [address] [place] [address] PCP - Aetna Medicare Attributed 02/21/22 03/23/22 Diana Field MD [address] [place] [address] PCP - Aetna Medicare Attributed 03/24/22 Kenzie Neely MD 499 [place] [address] Physician Obstetrics and Gynecology 01/04/19 Sofi Hinson, RN 499 [place] [address] Oncology Nurse Navigator 04/25/19 04/23/21 Sahil Ignacio MD 499 [place] [address] Cardiovascular Disease 06/27/19 Hilaria Mathew MD [address] [place] [phone] Hematology Oncology 08/20/19 Cheryle Garcia MD 85 [place] [address] Radiation Oncology 08/20/19 Rafia Stevenson MD [address] [place] [address] Surgery, Breast 05/28/20 Joselo Arnold MD [address] [place] [address] Surgery, Orthopedic 11/19/20 Karma Kahn, RN [address] [place] [address] ICP Community Rn Intensive Care Unit 07/27/21 02/07/25 Bonnie Garrett MD [address] [place] [address] Psychiatrist Psychiatry, General 11/07/22 Sherly Parra MD [address] [place] [address] Endocrinology 07/25/23 Ilana Jeffery LCSW [address] [facility] 4A [place] [address] ICP Community Rn Intensive Care Unit 02/07/25 02/25/25 Hodan Lemon [address] [address] ICP Community Rn Intensive Care Unit 02/25/25 documented as of this encounter
--- OUTSIDE RECORDS SUMMARY | 2025-07-03 00:29 | XMS_ITS | Encounter Summary ---
Author Organization [facility] Address 100 [place] [address] Care Team Providers Care Figurine Maker Name Role Phone Diana Field MD Primary Care Provider Kenzie Neely MD Unavailable Sofi Hinson RN Unavailable Unavaila ble Sahil Ignacio MD Unavailable [phone] DosHilaria love MD Unavailable Cheryle Garcia MD Unavailable [phone] Rafia Stevenson MD Unavailable [phone] Joselo Arnold MD Unavailable [phone] Karma Kahn RN Unavailable [phone] Jenn David DO Unavailable [phone] DostHilaria MD Unavailable Diana Field MD Unavailable [phone] Bonnie Garrett MD Unavailable Unavailable Sherly Parra MD Unavailable Ilana Jeffery LCSW Unavailable [phone] Hodan Lemon Unavailable Encounter Details Date Type Department Care Team (Late st Contact Info) Description 08/09/[address] [facility] Breast Care & Surgery [place] 399 [facility] [address] [place] [address] Rafia Stevenson MD 399 [facility] [address] [place] [address] Social History Tobacco Use Types Packs/Day Years [...] Description 08/12/2025 1:45 PM EST Office Visit [facility] Endocrinology [place] [address] [phone] Sherly Parra MD 100 [place] [address] 10/22/2025 10:45 AM EDT Office Visit [address] [phone] Diana Field MD 100 [facility] 101 [place] [address] documented as of this encounter Visit Diagnoses Not on filedocumented in this encounter Care Teams Figurine Maker Relationship Specialty Start Date End Date Diana Field MD PCP - General Internal Medicine 02/22/16 Jenn David DO [address] [place] [address] PCP - Aetna Medicare Attributed 07/24/21 02/20/22 Hilaria Mathew MD 2800 [facility] 3rd [place] [address] PCP - Aetna Medicare Attributed 02/21/22 03/23/22 Diana Field MD [address] [place] [address] PCP - Aetna Medicare Attributed 03/24/22 Kenzie Neely MD 499 [facility] 220 [place] [address] Physician Obstetrics and Gynecology 01/04/19 Sofi Hinson, RN [address] [address] Oncology Nurse Navigator 04/25/19 04/23/21 Sahil Ignacio MD 499 [place] [address] Cardiovascular Disease 06/27/19 Hilaria Mathew MD 85 [place] [address] Hematology Oncology 08/20/19 Cheryle Garcia MD 85 [place] [address] Radiation Oncology 08/20/19 Rafia Stevenson MD 399 [facility] [address] [place] [phone] Surgery, Breast 11/5/20 Joselo Arnold MD [address] [place] [address] Surgery, Orthopedic 11/19/20 Karma Kahn, RN [address] [place] [address] [facility] 4 [place] [address] ICP Community Slabber Light 07/27/21 02/07/25 Bonnie Garrett MD [address] [place] [address] Psychiatrist Psychiatry, General 11/07/22 Sherly Parra MD [address] [place] [address] Endocrinology 07/25/23 Ilana Jeffery LCSW [address] [address] ICP Community Slabber Light 02/07/25 02/25/25 Hodan Lemon [address] [address] ICP Community Slabber Light 02/25/25 documented as of this encounter
--- OUTSIDE RECORDS SUMMARY | 2025-07-03 00:29 | XMS_ITS | Encounter Summary ---
Author Organization [facility] Address [address] [place] [address] Care Team Providers Care Metal Sheet Roller Operator Name Role Phone Diana Field MD Primary Care Provider [phone] Kenzie Neely MD Unavailable Sahil Ignacio MD Unavailable [phone] Hilaria Mathew MD Unavailable Cheryle Garcia MD Unavailable [phone] Rafia Stevenson MD Unavailable [phone] Joselo Arnold MD Unavailable Diana Field MD Unavailable Bonnie Garrett MD Unavailable Unavailable Sherly Parra MD Unavailable Hodan Lemon Unavailable Encounter Details Date Type Department Care Team (Late st Contact Info) Description 04/23/2025 Scanned Document [address] [place] [address] Diana Field MD [address] [place] [address] [address] [place] [address] Social History Tobacco Use Types Packs/Day Years Used Date Smoking Tobacco: Never Smokeless Tobacco: Never Alcohol Use Standard Drinks/Week Comments No 0 (1 standard drink = 0.6 oz pur e alcohol) [facility] Utilities Answer Date Recorded In the past [...] and Family Not on file 10/21/2024 Attends Synagogue Services Not on file 10/21 Active Member [...] any time in the past 12 m [facility], were you homeless or living in a group home (including now)? No 10/21/2024 Physical Activity [...] on file documented as of this encounter Functional Status * AUDIT-C Score Answer Date of Assessment Author 0 04/23/2025 6:01 PM EDT Cinthya Toure RN * Question Answer Date of Assessment Author AUDIT-C Total Score - Female 0 04/23/2025 6:01 PM EDDIET Nima Toure RN Q1: How often do you have a drink containing alcohol? Never 04/23/2025 6:01 PM EDT Nima Toure RN Q2: How many drinks containing alcohol do you have on a typical day when you are drinking? Patient does not drink 04/23/2025 6:01 PM EDT Nima Toure RN Q3: How often do you have six or more drinks on one occasion? Never 04/23/2025 6:01 PM EDDIET Nima Toure RN documented as of this encounter Plan of Treatment Upcoming Encounters Date Type Department Care Team (Late st Contact Info) Description 08/12/2025 1:45 PM EST Office Visit [facility] Endocrinology [address] [address] Sherly Parra MD [address] [place] [address] 10/22/2025 10:45 AM EDT Office Visit [facility] 100 [facility] [address] [place] [phone] Diana Field MD 100 [facility] 101 [place] [address] documented as of this encounter Visit Diagnoses Not on filedocumented in this encounter Care Teams Metal Sheet Roller Operator Relationship Specialty Start Date End Date Diana Field MD PCP - General Internal Medicine 02/22/16 Diana Field MD 100 [facility] 101 [place] [address] PCP - Aetna Medicare Attributed 03/24/22 Kenzie Neely MD [address] [place] [phone] Physician Obstetrics and Gynecology 01/04/19 Sahil Ignacio MD [address] [place] [phone] Cardiovascular Disease 06/27/19 Hilaria Mathew MD 85 [place] [address] Hematology Oncology 08/20/19 Cheryle Garcia MD 85 [place] [address] Radiation Oncology 08/20/19 Rafia Stevenson MD [address] [place] [address] Surgery, Breast 05/28/20 Joselo Arnold MD [address] [place] [address] Surgery, Orthopedic 11/19/20 Bonnie Garrett MD [address] [place] [address] Psychiatrist Psychiatry, General 11/07/22 Sherly Parra MD [address] [place] [address] Endocrinology 07/25/23 Hodan Lemon 1290 [facility] [address] [place] [address] ICP Community Die Maintenance Technician 02/25/25 documented as of this encounter
--- OUTSIDE RECORDS SUMMARY | 2025-07-03 00:29 | XMS_ITS | Encounter Summary ---
Author Organization [facility] Address [address] [place] [address] Care Team Providers Care Process Helper Name Role Phone Diana Field MD Primary Care Provider + [phone] Kenzie Neely MD Unavailable Sahil Ignacio MD Unavailable [phone] Hilaria Mathew MD Unavailable Cheryle Garcia MD Unavailable [phone] Rafia Stevenson MD Unavailable [phone] Joselo Arnold MD Unavailable [phone] Karma Kahn RN Unavailable [phone] Diana Field MD Unavailable [phone] Bonnie Garrett MD Unavailable Unavailable Sherly Parra MD Unavailable Ilana Jeffery LCSW Unavailable [phone] Hodan Lemon Unavailable Encounter Details Date Type Department Care Team (Late st Contact Info) Description 03/16/2023 Scanned Document [facility] PRIMARY CARE SCAN Primary Care, Scan Social History Tobacco Use [...] Description 08/12/2025 1:45 PM EST Office Visit [facility] End[facility] [place] [address] [phone] Sherly Parra MD [address] [place] [phone] 10/22/2025 10:45 AM EDT Office Visit [facility] [address] [phone] Diana Field MD [address] [place] [address] documented as of this encounter Visit Diagnoses Not on filedocumented in this encounter Care Teams Process Helper Relationship Specialty Start Date End Date Diana Field MD PCP - General Internal Medicine 02/22/16 Diana Field MD [address] [address] PCP - [employer] Medicare Attributed 03/24/22 Kenzie Neely MD [address] [facility] [address] [place] [address] Physician Obstetrics and Gynecology 01/04/19 Sahil Ignacio MD [facility] [address] [place] [id number] Cardiovascular Disease 06/27/19 Hilaria Mathew MD [address] [place] [address] Hematology Oncology 08/20/19 Cheryle Garcia MD [address] [place] [address] Radiation Oncology 08/20/19 Rafia Stevenson MD [address] [facility] [address] [place] [address] Surgery, Breast 05/28/20 Joselo Arnold MD [address] [place] [address] Surgery, Orthopedic 11/19/20 Karma Kahn, MONA [address] [facility] [address] [place] [address] [facility] Community Wallpaperer Helper 07/27/21 02/07/25 Bonnie Garrett MD [address] [place] [address] Psychiatrist Psychiatry, General 11/07/22 Sherly Parra MD [address] [place] [address] Endocrinology 07/25/23 Ilana Jeffery LCSW [address] [facility] [address] [place] [address] [facility] Community Wallpaperer Helper 02/07/25 02/25/25 Hodan Lemon [address] [address] [facility] Community Wallpaperer Helper 02/25/25 documented as of this encounter
== END 2025-07-02 16:12 | disposition home or self-care (01) ==
LOC: HO.HKAE 15:45
PROVIDERS: PCP Internal Medicine; Visit Provider Internal Medicine Hypertension Specialist
DX: I12.9 Hypertensive chronic kidney disease with stage 1 through stage 4 chronic kidney disease, or unspecified chronic kidney disease (principal); N18.9 Chronic kidney disease, unspecified
CPT/HCPCS: 99214

== ENCOUNTER → 2025-07-02 15:45 | Outpatient (BNVA) | payer MEDICARE, SELFPAY | PROVIDERS: PCP Internal Medicine; Visit Provider Internal Medicine Hypertension Specialist | DX: I12.9 Hypertensive chronic kidney disease with stage 1 through stage 4 chronic kidney disease, or unspecified chronic kidney disease (principal); N18.9 Chronic kidney disease, unspecified; N20.0 Calculus of kidney; N14.19 Nephropathy induced by other drugs, medicaments and biological substances; Z79.899 Other long term (current) drug therapy | CPT/HCPCS: 99212 ==